=== PATIENT | male | born 1950 | race Caucasian/White ===

== ENCOUNTER 2017-09-15 14:47 | Inpatient (IN) | payer MEDICARE ==
[~2017-09-15] VITALS: Ht 188 cm; Wt 94.3 kg
[2017-09-15] MEDS ORDERED: MAG HYDROX/AL HYDROX/SIMETH 30 ML ORAL.SUSP PO PRN (15:45)
[2017-09-15] MEDS ORDERED: METHYL SALICYLATE/MENTHOL TOPICAL OINTMENT 29GM TUBE. TP PRN (15:45)
[2017-09-15] MEDS ORDERED: CALC1TAB75 PO (15:59)
[2017-09-15] MEDS ORDERED: CARB1TAB2 PO (15:59)
[2017-09-15] MEDS ORDERED: MULT1TAB52 PO (16:10)
[2017-09-15] MEDS ORDERED: GABA600T2 PO (16:10)
[2017-09-15] MEDS ORDERED: VENL75CA PO (16:10)
[2017-09-15] MEDS ORDERED: MEMA10TA PO (16:10)
[2017-09-15] MEDS ORDERED: APIX5TAB3 PO (16:10)
[2017-09-15] MEDS ORDERED: QUET25TA5 PO (16:10)
[2017-09-15] MEDS ORDERED: LISI-334 PO (16:10)
[2017-09-15] MEDS ORDERED: QUET50TA5 PO (16:10)
[2017-09-15] MEDS ORDERED: CLON0.5T PO (16:10)
[2017-09-15] MEDS ORDERED: PANT20TA58 PO (16:10)
[2017-09-15] MEDS ORDERED: OMEG-33 PO (16:10)
[2017-09-15 16:22] VITALS: BP 162/95
[2017-09-15 16:55] LABS: BASO % 0 % (0-3); EOS # 0.1 x10^3/uL (0.0-0.7); EOS % 1 % (0-3); HEMOGLOBIN 14.4 g/dL (13.0-17.5); LYMPH # 1.2 x10^3/uL (1.0-4.8); LYMPH % 20 % (24-48); MEAN CORPUSCULAR HEMOGLOBIN 32 pg (25-35); MEAN CORPUSCULAR HGB CONC 34 g/dL (31-37); MEAN CORPUSCULAR VOLUME 93 fL (79-100); MONO # 0.3 x10^3/uL (0.0-1.1); MONO % 5 % (0-9); NEUT # 4.5 x10^3uL (1.8-7.7); NEUT % 74 % (31-73); PLATELET COUNT 164 x10^3/uL (140-400); RED BLOOD COUNT 4.52 x10^6/uL (4.30-5.70); RED CELL DISTRIBUTION WIDTH 13.5 % (11.5-14.5); WHITE BLOOD COUNT 6.1 x10^3/uL (4.0-11.0)
[2017-09-15 17:11] LABS: ALBUMIN 3.6 g/dL (3.4-5.0); ALBUMIN/GLOBULIN RATIO 0.9 (1.0-1.7); CALCIUM 9.3 mg/dL (8.5-10.1); CREATININE 1.3 mg/dL (0.7-1.3); GFR 54.7; MAGNESIUM 2.3 mg/dL (1.8-2.4); TOTAL BILIRUBIN 0.9 mg/dL (0.2-1.0); TOTAL PROTEIN 7.6 g/dL (6.4-8.2)
[2017-09-15 17:23] VITALS: BP 145/95
[2017-09-15] MEDS: CARBIDOPA/LEVODOPA 25/100MG TABLET PO SCH ×2 (17:32→20:37)
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
[2017-09-15] MEDS: CALCIUM CARB/VIT D3 500/200 TABLET PO SCH (20:37)
[2017-09-15] MEDS: OMEGA-3 FATTY ACIDS/FISH OIL 1,000 MG CAPSULE. PO SCH (20:37)
[2017-09-15] MEDS: QUEtiapine 50 MG TABLET. PO SCH (20:37)
[2017-09-15] MEDS: APIXABAN 5 MG TABLET. PO SCH (20:37)
[2017-09-15] MEDS: GABAPENTIN 300 MG CAPSULE. PO SCH (20:37)
--- NOTE | 2017-09-15 21:34 | PDOC ---
Exam Note: Neto Note: Please also refer to the separate dictated note~for this date of service dictated separately.~Patient seen individually. Discussed the patient with Nursing staff reviewed the chart.~Reviewed interim history and current functioning. Reviewed vital signs,~Labs/ Radiology~and current medications noted below. Continue current treatment with the changes noted in the dictated addendum note Assessment: Vital Signs: Vital Signs Date Time Temp Pulse Resp B/P (MAP) Pulse Ox O2 Delivery O2 Flow Rate FiO2 09/15/17 17:23 88 145/95 (112) 09/15/17 16:22 98.5 20 99 Room Air Labs: Laboratory Tests Test 09/15/17 16:40 White Blood Count 6.1 x10^3/uL (4.0-11.0) Red Blood Count 4.52 x10^6/uL (4.30-5.70) Hemoglobin 14.4 g/dL (13.0-17.5) Hematocrit 42.0 % (39.0-53.0) Mean Corpuscular Volume 93 fL (79-100) Mean Corpuscular Hemoglobin 32 pg (25-35) Mean Corpuscular Hemoglobin Concent 34 g/dL (31-37) Red Cell Distribution Width 13.5 % (11.5-14.5) Platelet Count 164 x10^3/uL (140-400) Neutrophils (%) (Auto) 74 % (31-73) H Lymphocytes (%) (Auto) 20 % (24-48) L Monocytes (%) (Auto) 5 % (0-9) Eosinophils (%) (Auto) 1 % (0-3) Basophils (%) (Auto) 0 % (0-3) Neutrophils # (Auto) 4.5 x10^3uL (1.8-7.7) Lymphocytes # (Auto) 1.2 x10^3/uL (1.0-4.8) Monocytes # (Auto) 0.3 x10^3/uL (0.0-1.1) Eosinophils # (Auto) 0.1 x10^3/uL (0.0-0.7) Basophils # (Auto) 0.0 x10^3/uL (0.0-0.2) Sodium Level 144 mmol/L (136-145) Potassium Level 4.0 mmol/L (3.5-5.1) Chloride Level 106 mmol/L (98-107) Carbon Dioxide Level 30 mmol/L (21-32) Anion Gap 8 (6-14) Blood Urea Nitrogen 22 mg/dL (8-26) Creatinine 1.3 mg/dL (0.7-1.3) Estimated GFR (Cockcroft-Gault) 54.7 BUN/Creatinine Ratio 17 (6-20) Glucose Level 120 mg/dL (70-99) H Calcium Level 9.3 mg/dL (8.5-10.1) Magnesium Level 2.3 mg/dL (1.8-2.4) Total Bilirubin 0.9 mg/dL (0.2-1.0) Aspartate Amino Transferase (AST) 36 U/L (15-37) Alanine Aminotransferase (ALT) 45 U/L (16-63) Alkaline Phosphatase 63 U/L (46-116) Total Protein 7.6 g/dL (6.4-8.2) Albumin 3.6 g/dL (3.4-5.0) Albumin/Globulin Ratio 0.9 (1.0-1.7) L Current Medications: Meds: Current Medications Acetaminophen (Tylenol) 650 mg PRN Q6HRS PRN PO PAIN / TEMP; Start 09/15/17 at 15:45 Multi-Ingredient Ointment (Analgesic [place]) 1 abbey PRN QID PRN TP MUSCLE PAIN; Start 09/15/17 at 15:45 Al Hydroxide/Mg Hydroxide (Mylanta Plus Xs) 15 ml PRN AFTMEALHC PRN PO DYSPEPSIA; Start 09/15/17 at 15:45 Magnesium Hydroxide (Milk Of Magnesia) 2,400 mg PRN QHS PRN PO CONSTIPATION; Start 09/15/17 at 15:45 Apixaban (Eliquis) 5 mg BID PO Last administered on 09/15/17 20:37; Start 09/15/17 at 21:00 Carbidopa/Levodopa (Sinemet 25/100) 1 tab 5XDAY PO Last administered on t 20:37; Start 09/15/17 at 18:00 Lisinopril (Prinivil) 20 mg DAILY PO ; Start 09/16/17 at 09:00 Pantoprazole Sodium (Protonix) 40 mg DAILYAC PO ; Start 09/16/17 at 07:30 Calcium/Vitamin D (Oscal D 500mg/ 200uts) 1 tab TID PO Last administered on 20:37; Start 09/15/17 at 21:00 Gabapentin (Neurontin) 600 mg QHS PO Last administered on 09/15/17 20:37; Start 09/15/17 at 21:00 Multivitamins/ Calcium (Thera-M Plus) 1 tab DAILY PO ; Start 09/16/17 at 09:00 Fish Oil (Fish Oil) 1,000 mg TID PO Last administered on 09/15/17 20:37; Start 09/15/17 at 21:00 Clonazepam (KlonoPIN) 0.25 mg DAILY PO ; Start 09/16/17 at 09:00 Memantine (Namenda) 10 mg DAILY PO ; Start 09/16/17 at 09:00 Quetiapine Fumarate (SEROquel) 25 mg DAILY PO ; Start 09/16/17 at 09:00 Quetiapine Fumarate (SEROquel) 50 mg QHS PO Last administered on 09/15/17 20: 37; Start 09/15/17 at 21:00 Venlafaxine HCl (Effexor Xr) 75 mg DAILY PO ; Start 09/16/17 at 09:00 Active Scripts Active Reported Multivitamins (Multivitamin) 1 Each Tablet 1 Each PO DAILY Seroquel (Quetiapine Fumarate) 50 Mg Tablet 50 Mg PO QHS Seroquel (Quetiapine Fumarate) 25 Mg Tablet 25 Mg PO DAILY Protonix (Pantoprazole Sodium) 20 Mg Tablet.dr 20 Mg PO DAILY Namenda (Memantine Hcl) 10 Mg Tablet 10 Mg PO DAILY Lisinopril 20 Mg Tablet 20 Mg PO DAILY Klonopin (Clonazepam) 0.5 Mg Tablet 0.25 Mg PO DAILY Gabapentin 600 Mg Tablet 600 Mg PO QHS [place] 3 1,000 Mg Softgel ([place]-3 Fatty Acids/Fish Oil) 1 Each Capsule 1 Each PO TID Eliquis (Apixaban) 5 Mg Tablet 5 Mg PO BID Effexor Xr (Venlafaxine Hcl) 75 Mg Cap.er.24h 75 Mg PO DAILY Sinemet 25-100 Mg Tablet (Carbidopa/Levodopa) 1 Each Tablet 1 Tab PO 5XDAY Calcium 600 + Vit D 200 Tablet (Calcium Carbonate/Vitamin D3) 1 Each Tablet 1 Each PO TID I have reviewed the current psychotropics carefully including drug interactions. Risk benefit ratio favors no change other than as noted in my dictated progress note. Diagnosis: Problems: (1) Anxiety disorder (2) Dementia due to Parkinson's disease with behavioral disturbance (3) Lewy body dementia with behavioral disturbance (4) Impulse control disorder (5) Major depressive disorder, recurrent episode BRITTANY CONTRERAS MD Sep 15, 2017 21:34
--- NOTE | 2017-09-15 22:18 | EKG ---
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
[2017-09-16] MEDS: CARBIDOPA/LEVODOPA 25/100MG TABLET PO SCH ×5 (05:06→21:09)
[2017-09-16] MEDS: ACETAMINOPHEN 325 MG TABLET PO PRN (05:06)
[2017-09-16 06:08] VITALS: BP 96/63
[2017-09-16] MEDS: LISINOPRIL 20 MG TABLET PO SCH (09:00)
[2017-09-16] MEDS: MEMANTINE 10 MG TABLET. PO SCH (09:55)
[2017-09-16] MEDS: CALCIUM CARB/VIT D3 500/200 TABLET PO SCH ×3 (09:55→21:09)
[2017-09-16] MEDS: clonazePAM 0.5 MG TABLET PO SCH (09:55)
[2017-09-16] MEDS: OMEGA-3 FATTY ACIDS/FISH OIL 1,000 MG CAPSULE. PO SCH ×3 (09:55→21:10)
[2017-09-16] MEDS: PANTOPRAZOLE 40 MG TABLET. PO SCH (09:55)
[2017-09-16] MEDS: APIXABAN 5 MG TABLET. PO SCH ×2 (09:55→21:09)
[2017-09-16] MEDS: VENLAFAXINE XR 37.5 MG CAP.ER.24H. PO SCH (09:55)
[2017-09-16] MEDS: QUEtiapine 25 MG TABLET. PO SCH (09:56)
[2017-09-16] MEDS: MULTIVITAMIN with MINERAL TABLET. PO SCH (09:56)
[2017-09-16 10:51] LABS: THYROID STIM HORMONE (TSH) 0.592 uIU/mL (0.358-3.740)
[2017-09-16 12:08] LABS: HEMOGLOBIN A1C 5.3 % (4.8-5.6); T3 TOTAL 84 ng/dL (71-180); THYROXINE 7.7 ug/dL (4.5-12.0)
[2017-09-16 16:17] VITALS: BP 101/61
--- NOTE | 2017-09-16 16:27 | RAD ---
AP chest. History: Temperature AP view was taken of the chest. The patient is rotated to the left. There are no definite infiltrates. There is no effusion. Left lung base is not optimally evaluated. There is a stimulator on the left. Impression: 1. No definite infiltrates.
[2017-09-16 16:38] LABS: BACTERIA,URINE 0 /HPF (0-FEW); BILIRUBIN,URINE SMALL (NEG); CLARITY,URINE CLEAR; COLOR,URINE AMBER; GLUCOSE,URINE NEG (NEG); NITRITE,URINE NEG (NEG); RBC,URINE 0 /HPF (0-2); SQUAMOUS EPITHELIAL CELL,UR OCC /LPF; UROBILINOGEN,URINE 0.2 mg/dL (0.2 mg/dL); WBC,URINE OCC /HPF (0-4)
[2017-09-16 17:30] LABS: BASO % 0 % (0-3); EOS % 1 % (0-3); HEMATOCRIT 39.8 % (39.0-53.0); HEMOGLOBIN 13.6 g/dL (13.0-17.5); LYMPH # 0.4 x10^3/uL (1.0-4.8); LYMPH % 7 % (24-48); MEAN CORPUSCULAR HEMOGLOBIN 32 pg (25-35); MEAN CORPUSCULAR HGB CONC 34 g/dL (31-37); MEAN CORPUSCULAR VOLUME 93 fL (79-100); MONO # 0.2 x10^3/uL (0.0-1.1); MONO % 3 % (0-9); NEUT # 5.8 x10^3uL (1.8-7.7); NEUT % 90 % (31-73); PLATELET COUNT 152 x10^3/uL (140-400); RED BLOOD COUNT 4.29 x10^6/uL (4.30-5.70); RED CELL DISTRIBUTION WIDTH 13.9 % (11.5-14.5); WHITE BLOOD COUNT 6.5 x10^3/uL (4.0-11.0)
[2017-09-16 17:37] LABS: ALBUMIN 3.1 g/dL (3.4-5.0); ALBUMIN/GLOBULIN RATIO 0.9 (1.0-1.7); CALCIUM 9.1 mg/dL (8.5-10.1); CREATININE 1.1 mg/dL (0.7-1.3); GFR 66.4; POTASSIUM 4.3 mmol/L (3.5-5.1); TOTAL BILIRUBIN 1.5 mg/dL (0.2-1.0); TOTAL PROTEIN 6.5 g/dL (6.4-8.2)
--- NOTE | 2017-09-16 20:03 | PDOC ---
Exam Note: Neto Note: Please also refer to the separate dictated note~for this date of service dictated separately.~Patient seen individually. Discussed the patient with Nursing staff reviewed the chart.~Reviewed interim history and current functioning. Reviewed vital signs,~Labs/ Radiology~and current medications noted below. Continue current treatment with the changes noted in the dictated addendum note Assessment: Vital Signs: Vital Signs Date Time Temp Pulse Resp B/P (MAP) Pulse Ox O2 Delivery O2 Flow Rate FiO2 09/16/17 16:17 100.6 107 20 101/61 (74) 97 09/15/17 16:22 Room Air I&O Intake and Output 09/16/17 07:00 Intake Total 360 ml Balance 360 ml Intake Oral 360 ml # Bowel Movements 1 Labs: Laboratory Tests Test 09/16/17 16:10 09/16/17 17:10 Urine Collection Type Unknown Urine Color [place] Urine Clarity Clear Urine pH 5.5 Urine Specific [place] 1.020 Urine Protein 30 mg/dl (NEG-TRACE) Urine Glucose (UA) Neg mg/dL (NEG) Urine Ketones (Stick) 15 mg/dL (NEG) Urine Blood Neg (NEG) Urine Nitrite Neg (NEG) Urine Bilirubin Small (NEG) Urine Urobilinogen Dipstick 0.2 mg/dL (0.2 mg/dL) Urine Leukocyte Esterase Neg (NEG) Urine RBC 0 /HPF (0-2) Urine WBC Occ /HPF (0-4) Urine Squamous Epithelial Cells Occ /LPF Urine Bacteria 0 /HPF (0-FEW) Urine Mucus Mod /LPF White Blood Count 6.5 x10^3/uL (4.0-11.0) Red Blood Count 4.29 x10^6/uL (4.30-5.70) L Hemoglobin 13.6 g/dL (13.0-17.5) Hematocrit 39.8 % (39.0-53.0) Mean Corpuscular Volume 93 fL (79-100) Mean Corpuscular Hemoglobin 32 pg (25-35) Mean Corpuscular Hemoglobin Concent 34 g/dL (31-37) Red Cell Distribution Width 13.9 % (11.5-14.5) Platelet Count 152 x10^3/uL (140-400) Neutrophils (%) (Auto) 90 % (31-73) H Lymphocytes (%) (Auto) 7 % (24-48) L Monocytes (%) (Auto) 3 % (0-9) Eosinophils (%) (Auto) 1 % (0-3) Basophils (%) (Auto) 0 % (0-3) Neutrophils # (Auto) 5.8 x10^3uL (1.8-7.7) Lymphocytes # (Auto) 0.4 x10^3/uL (1.0-4.8) L Monocytes # (Auto) 0.2 x10^3/uL (0.0-1.1) Eosinophils # (Auto) 0.0 x10^3/uL (0.0-0.7) Basophils # (Auto) 0.0 x10^3/uL (0.0-0.2) Sodium Level 141 mmol/L (136-145) Potassium Level 4.3 mmol/L (3.5-5.1) Chloride Level 104 mmol/L (98-107) Carbon Dioxide Level 28 mmol/L (21-32) Anion Gap 9 (6-14) Blood Urea Nitrogen 24 mg/dL (8-26) Creatinine 1.1 mg/dL (0.7-1.3) Estimated GFR (Cockcroft-Gault) 66.4 BUN/Creatinine Ratio 22 (6-20) H Glucose Level 110 mg/dL (70-99) H Lactic Acid Level 1.3 mmol/L (0.4-2.0) Calcium Level 9.1 mg/dL (8.5-10.1) Total Bilirubin 1.5 mg/dL (0.2-1.0) H Aspartate Amino Transferase (AST) 39 U/L (15-37) H Alanine Aminotransferase (ALT) 16 U/L (16-63) Alkaline Phosphatase 50 U/L (46-116) Total Protein 6.5 g/dL (6.4-8.2) Albumin 3.1 g/dL (3.4-5.0) L Albumin/Globulin Ratio 0.9 (1.0-1.7) L Current Medications: Meds: Current Medications Acetaminophen (Tylenol) 650 mg PRN Q6HRS PRN PO PAIN / TEMP Last administered on 09/16/17t 05:06; Start 09/15/17 at 15:45 Multi-Ingredient Ointment (Analgesic [place]) 1 abbey PRN QID PRN TP MUSCLE PAIN; Start 09/15/17 at 15:45 Al Hydroxide/Mg Hydroxide (Mylanta Plus Xs) 15 ml PRN AFTMEALHC PRN PO DYSPEPSIA; Start 09/15/17 at 15:45 Magnesium Hydroxide (Milk Of Magnesia) 2,400 mg PRN QHS PRN PO CONSTIPATION; Start 09/15/17 at 15:45 Apixaban (Eliquis) 5 mg BID PO Last administered on 09/16/17 09:55; Start at 21:00 Carbidopa/Levodopa (Sinemet 25/100) 1 tab 5XDAY PO Last administered on 17:13; Start 09/15/17 at 18:00 Lisinopril (Prinivil) 20 mg DAILY PO ; Start 09/16/17 at 09:00 Pantoprazole Sodium (Protonix) 40 mg DAILYAC PO Last administered on 09:55; Start 09/16/17 at 07:30 Calcium/Vitamin D (Oscal D 500mg/ 200uts) 1 tab TID PO Last administered on 14:23; Start 09/15/17 at 21:00 Gabapentin (Neurontin) 600 mg QHS PO Last administered on 09/15/17 20:37; Start 09/15/17 at 21:00 Multivitamins/ Calcium (Thera-M Plus) 1 tab DAILY PO Last administered on 09/16 09:56; Start 09/16/17 at 09:00 Fish Oil (Fish Oil) 1,000 mg TID PO Last administered on 09/16/17 14:23; Start 09/15/17 at 21:00 Clonazepam (KlonoPIN) 0.25 mg DAILY PO Last administered on 09/16/17 09:55; Start 09/16/17 at 09:00 Memantine (Namenda) 10 mg DAILY PO Last administered on 09/16/17 09:55; Start 09/16/17 at 09:00 Quetiapine Fumarate (SEROquel) 25 mg DAILY PO Last administered on 09/16/17 09:56; Start 09/16/17 at 09:00 Quetiapine Fumarate (SEROquel) 50 mg QHS PO Last administered on 09/15/17 20: 37; Start 09/15/17 at 21:00 Venlafaxine HCl (Effexor Xr) 75 mg DAILY PO Last administered on 09/16/17 09: 55; Start 09/16/17 at 09:00 Active Scripts Active Reported Multivitamins (Multivitamin) 1 Each Tablet 1 Each PO DAILY Seroquel (Quetiapine Fumarate) 50 Mg Tablet 50 Mg PO QHS Seroquel (Quetiapine Fumarate) 25 Mg Tablet 25 Mg PO DAILY Protonix (Pantoprazole Sodium) 20 Mg Tablet.dr 20 Mg PO DAILY Namenda (Memantine Hcl) 10 Mg Tablet 10 Mg PO DAILY Lisinopril 20 Mg Tablet 20 Mg PO DAILY Klonopin (Clonazepam) 0.5 Mg Tablet 0.25 Mg PO DAILY Gabapentin 600 Mg Tablet 600 Mg PO QHS [place] 3 1,000 Mg Softgel ([place]-3 Fatty Acids/Fish Oil) 1 Each Capsule 1 Each PO TID Eliquis (Apixaban) 5 Mg Tablet 5 Mg PO BID Effexor Xr (Venlafaxine Hcl) 75 Mg Cap.er.24h 75 Mg PO DAILY Sinemet 25-100 Mg Tablet (Carbidopa/Levodopa) 1 Each Tablet 1 Tab PO 5XDAY Calcium 600 + Vit D 200 Tablet (Calcium Carbonate/Vitamin D3) 1 Each Tablet 1 Each PO TID I have reviewed the current psychotropics carefully including drug interactions. Risk benefit ratio favors no change other than as noted in my dictated progress note. Diagnosis: Problems: (1) Anxiety disorder (2) Dementia due to Parkinson's disease with behavioral disturbance (3) Lewy body dementia with behavioral disturbance (4) Impulse control disorder (5) Major depressive disorder, recurrent episode BRITTANY CONTRERAS MD Sep 16, 2017 20:03
[2017-09-16] MEDS: GABAPENTIN 300 MG CAPSULE. PO SCH (21:09)
[2017-09-16] MEDS: QUEtiapine 50 MG TABLET. PO SCH (21:09)
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
[2017-09-17] MEDS: CARBIDOPA/LEVODOPA 25/100MG TABLET PO SCH ×5 (05:13→20:20)
[2017-09-17 05:54] VITALS: BP 161/92
[2017-09-17] MEDS: MAGNESIUM HYDROXIDE 2,400 MG/30 ML ORAL.SUSP. PO PRN (06:24)
[2017-09-17 06:48] VITALS: BP 127/78
--- NOTE | 2017-09-17 08:10 | RAD ---
CT of the head without contrast, 09/17/2017: History: Fall, head injury There are linear opacities extending into both basal ganglia regions, likely stimulator leads. Correlation with the patient's surgical history is suggested. The ventricles are within normal limits in size. There is no shift of the midline structures. There is no evidence of acute intracranial hemorrhage or mass effect. IMPRESSION: 1. Postsurgical findings as described above. 2. No acute intracranial abnormality is detected. PQRS Compliance Statement: One or more of the following individualized dose reduction techniques were utilized for this examination: 1. Automated exposure control 2. Adjustment of the mA and/or kV according to patient size 3. Use of iterative reconstruction technique
[2017-09-17] MEDS: PANTOPRAZOLE 40 MG TABLET. PO SCH (08:56)
[2017-09-17] MEDS: VENLAFAXINE XR 37.5 MG CAP.ER.24H. PO SCH (08:56)
[2017-09-17] MEDS: APIXABAN 5 MG TABLET. PO SCH ×2 (08:57→20:20)
[2017-09-17] MEDS: OMEGA-3 FATTY ACIDS/FISH OIL 1,000 MG CAPSULE. PO SCH ×3 (08:57→20:20)
[2017-09-17] MEDS: CALCIUM CARB/VIT D3 500/200 TABLET PO SCH ×3 (08:58→20:20)
[2017-09-17] MEDS: MEMANTINE 10 MG TABLET. PO SCH (08:58)
[2017-09-17] MEDS: clonazePAM 0.5 MG TABLET PO SCH (08:58)
[2017-09-17] MEDS: QUEtiapine 25 MG TABLET. PO SCH (08:59)
[2017-09-17] MEDS: LISINOPRIL 20 MG TABLET PO SCH (08:59)
[2017-09-17] MEDS: MULTIVITAMIN with MINERAL TABLET. PO SCH (08:59)
[2017-09-17] MEDS: ACETAMINOPHEN 325 MG TABLET PO PRN (08:59)
--- NOTE | 2017-09-17 09:48 | RAD ---
Indication: Pain after falling backwards this morning, striking elbow and head on floor. Technique: 2 views of the left elbow are submitted for review. No comparison is available. Findings: There is no fracture or dislocation. Mild degenerative spurring is noted. There is displacement of fat pads, likely a small effusion. There is no soft tissue swelling. Impression: Negative for fracture. Suspected small effusion.
[2017-09-17 15:57] VITALS: BP 114/77
[2017-09-17] MEDS: QUEtiapine 50 MG TABLET. PO SCH (20:20)
[2017-09-17] MEDS: GABAPENTIN 300 MG CAPSULE. PO SCH (20:20)
[2017-09-17] MEDS: DIVALPROEX 125 MG CAP.SPRINK PO SCH (20:22)
--- NOTE | 2017-09-17 21:26 | PDOC ---
Exam Note: Neto Note: Please also refer to the separate dictated note~for this date of service dictated separately.~Patient seen individually. Discussed the patient with Nursing staff reviewed the chart.~Reviewed interim history and current functioning. Reviewed vital signs,~Labs/ Radiology~and current medications noted below. Continue current treatment with the changes noted in the dictated addendum note Assessment: Vital Signs: Vital Signs Date Time Temp Pulse Resp B/P (MAP) Pulse Ox O2 Delivery O2 Flow Rate FiO2 09/17/17 15:57 97.4 84 16 114/77 (89) 97 09/17/17 06:48 Room Air I&O Intake and Output 09/17/17 06:59 Intake Total 720 ml Balance 720 ml Intake Oral 720 ml # Bowel Movements 2 Current Medications: Meds: Current Medications Acetaminophen (Tylenol) 650 mg PRN Q6HRS PRN PO PAIN / TEMP Last administered on 09/17/17 08:59; Start 09/15/17 at 15:45 Multi-Ingredient Ointment (Analgesic [place]) 1 abbey PRN QID PRN TP MUSCLE PAIN; Start 09/15/17 at 15:45 Al Hydroxide/Mg Hydroxide (Mylanta Plus Xs) 15 ml PRN AFTMEALHC PRN PO DYSPEPSIA; Start 09/15/17 at 15:45 Magnesium Hydroxide (Milk Of Magnesia) 2,400 mg PRN QHS PRN PO CONSTIPATION Last administered on 09/17/17 06:24; Start 09/15/17 at 15:45 Apixaban (Eliquis) 5 mg BID PO Last administered on 09/17/17 20:20; Start at 21:00 Carbidopa/Levodopa (Sinemet 25/100) 1 tab 5XDAY PO Last administered on 20:20; Start 09/15/17 at 18:00 Lisinopril (Prinivil) 20 mg DAILY PO Last administered on 09/17/17 08:59; Start 09/16/17 at 09:00 Pantoprazole Sodium (Protonix) 40 mg DAILYAC PO Last administered on 08:56; Start 09/16/17 at 07:30 Calcium/Vitamin D (Oscal D 500mg/ 200uts) 1 tab TID PO Last administered on 20:20; Start 09/15/17 at 21:00 Gabapentin (Neurontin) 600 mg QHS PO Last administered on 09/17/17 20:20; Start 09/15/17 at 21:00 Multivitamins/ Calcium (Thera-M Plus) 1 tab DAILY PO Last administered on 09/17 08:59; Start 09/16/17 at 09:00 Fish Oil (Fish Oil) 1,000 mg TID PO Last administered on 09/17/17 20:20; Start 09/15/17 at 21:00 Clonazepam (KlonoPIN) 0.25 mg DAILY PO Last administered on 09/17/17 08:58; Start 09/16/17 at 09:00 Memantine (Namenda) 10 mg DAILY PO Last administered on 09/17/17 08:58; Start 09/16/17 at 09:00 Quetiapine Fumarate (SEROquel) 25 mg DAILY PO Last administered on 09/17/17 08:59; Start 09/16/17 at 09:00 Quetiapine Fumarate (SEROquel) 50 mg QHS PO Last administered on 09/17/17 20: 20; Start 09/15/17 at 21:00 Venlafaxine HCl (Effexor Xr) 75 mg DAILY PO Last administered on 09/17/17 08: 56; Start 09/16/17 at 09:00 Divalproex Sodium (Depakote Sprinkles) 125 mg [id number] PO Last administered on 20:22; Start 09/17/17 at 21:00 Active Scripts Active Reported Multivitamins (Multivitamin) 1 Each Tablet 1 Each PO DAILY Seroquel (Quetiapine Fumarate) 50 Mg Tablet 50 Mg PO QHS Seroquel (Quetiapine Fumarate) 25 Mg Tablet 25 Mg PO DAILY Protonix (Pantoprazole Sodium) 20 Mg Tablet.dr 20 Mg PO DAILY Namenda (Memantine Hcl) 10 Mg Tablet 10 Mg PO DAILY Lisinopril 20 Mg Tablet 20 Mg PO DAILY Klonopin (Clonazepam) 0.5 Mg Tablet 0.25 Mg PO DAILY Gabapentin 600 Mg Tablet 600 Mg PO QHS [place] 3 1,000 Mg Softgel ([place]-3 Fatty Acids/Fish Oil) 1 Each Capsule 1 Each PO TID Eliquis (Apixaban) 5 Mg Tablet 5 Mg PO BID Effexor Xr (Venlafaxine Hcl) 75 Mg Cap.er.24h 75 Mg PO DAILY Sinemet 25-100 Mg Tablet (Carbidopa/Levodopa) 1 Each Tablet 1 Tab PO 5XDAY Calcium 600 + Vit D 200 Tablet (Calcium Carbonate/Vitamin D3) 1 Each Tablet 1 Each PO TID I have reviewed the current psychotropics carefully including drug interactions. Risk benefit ratio favors no change other than as noted in my dictated progress note. 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
--- NOTE | 2017-09-17 23:52 | PN ---
DATE: 09/16/2017 This late entry for 09/16/2017 covers elements not covered in my initial note of 09/16/2017. SUBJECTIVE: I met with the patient in the evening of 09/16/2017. The patient did well the previous evening and reasonably during the day on 09/16/2017. He is able to admit that he is here for his temper problems. REVIEW OF SYSTEMS: Ambulation impaired, in wheelchair. No CV, , pulmonary, eye, ENT system symptoms on review. Reliability poor. MENTAL STATUS EXAM: Oriented to himself. Insight, judgment, recent and remote memory, attention, concentration, fund of knowledge poor, consistent with his diagnosis mentioned in my initial note. PLAN: Continue psychotropics mentioned in my initial note. Effexor, Klonopin, Namenda, Seroquel. Adjust further as clinically indicated. MAN Felicita CONTRERAS MD DR: ROCIO/afia JOB#: [id number] / [id number]
[2017-09-18 06:04] VITALS: BP 109/71
[2017-09-18] MEDS: CARBIDOPA/LEVODOPA 25/100MG TABLET PO SCH ×6 (07:18→20:25)
[2017-09-18] MEDS: OMEGA-3 FATTY ACIDS/FISH OIL 1,000 MG CAPSULE. PO SCH ×3 (07:58→20:25)
[2017-09-18] MEDS: APIXABAN 5 MG TABLET. PO SCH ×2 (07:58→20:25)
[2017-09-18] MEDS: MULTIVITAMIN with MINERAL TABLET. PO SCH (07:58)
[2017-09-18] MEDS: PANTOPRAZOLE 40 MG TABLET. PO SCH (07:59)
[2017-09-18] MEDS: QUEtiapine 25 MG TABLET. PO SCH (07:59)
[2017-09-18] MEDS: clonazePAM 0.5 MG TABLET PO SCH (07:59)
[2017-09-18] MEDS: CALCIUM CARB/VIT D3 500/200 TABLET PO SCH ×3 (07:59→20:25)
[2017-09-18] MEDS: MEMANTINE 10 MG TABLET. PO SCH (07:59)
[2017-09-18] MEDS: DIVALPROEX 125 MG CAP.SPRINK PO SCH ×3 (08:00→20:25)
[2017-09-18] MEDS: LISINOPRIL 20 MG TABLET PO SCH (08:00)
[2017-09-18] MEDS: ACETAMINOPHEN 325 MG TABLET PO PRN (08:00)
[2017-09-18] MEDS: VENLAFAXINE XR 37.5 MG CAP.ER.24H. PO SCH (08:00)
[2017-09-18] MEDS ORDERED: ACETAMINOPHEN 325 MG TABLET PO ONE (15:15)
[2017-09-18 16:08] VITALS: BP 123/91
[2017-09-18] MEDS: GABAPENTIN 300 MG CAPSULE. PO SCH (20:25)
[2017-09-18] MEDS: QUEtiapine 50 MG TABLET. PO SCH (20:26)
[2017-09-18] MEDS: LIDOCAINE (700MG/PATCH) PATCH. TD SCH ×2 (20:28→20:40)
[2017-09-18] MEDS: ACETAMINOPHEN 650 MG/20.3 ML SOLUTION. PO SCH (22:00)
--- NOTE | 2017-09-18 22:08 | PDOC ---
Exam Note: Neto Note: Please also refer to the separate dictated note~for this date of service dictated separately.~Patient seen individually. Discussed the patient with Nursing staff reviewed the chart.~Reviewed interim history and current functioning. Reviewed vital signs,~Labs/ Radiology~and current medications noted below. Continue current treatment with the changes noted in the dictated addendum note Assessment: Vital Signs: Vital Signs Date Time Temp Pulse Resp B/P (MAP) Pulse Ox O2 Delivery O2 Flow Rate FiO2 09/18/17 16:08 98.1 78 16 123/91 (102) 98 09/17/17 06:48 Room Air I&O Intake and Output 09/18/17 07:00 Intake Total 1260 ml Balance 1260 ml Intake Oral 1260 ml # Bowel Movements 1 Current Medications: Meds: Current Medications Acetaminophen (Tylenol) 650 mg PRN Q6HRS PRN PO PAIN / TEMP Last administered on 09/18/17 08:00; Start 09/15/17 at 15:45; Stop 09/18/17 at 15:20; Status DC Multi-Ingredient Ointment (Analgesic [place]) 1 abbey PRN QID PRN TP MUSCLE PAIN; Start 09/15/17 at 15:45 Al Hydroxide/Mg Hydroxide (Mylanta Plus Xs) 15 ml PRN AFTMEALHC PRN PO DYSPEPSIA; Start 09/15/17 at 15:45 Magnesium Hydroxide (Milk Of Magnesia) 2,400 mg PRN QHS PRN PO CONSTIPATION Last administered on 09/17/17 06:24; Start 09/15/17 at 15:45 Apixaban (Eliquis) 5 mg BID PO Last administered on 09/18/17 20:25; Start at 21:00 Carbidopa/Levodopa (Sinemet 25/100) 1 tab 5XDAY PO Last administered on 20:25; Start 09/15/17 at 18:00 Lisinopril (Prinivil) 20 mg DAILY PO Last administered on 09/18/17 08:00; Start 09/16/17 at 09:00 Pantoprazole Sodium (Protonix) 40 mg DAILYAC PO Last administered on 07:59; Start 09/16/17 at 07:30 Calcium/Vitamin D (Oscal D 500mg/ 200uts) 1 tab TID PO Last administered on 20:25; Start 09/15/17 at 21:00 Gabapentin (Neurontin) 600 mg QHS PO Last administered on 09/18/17 20:25; Start 09/15/17 at 21:00 Multivitamins/ Calcium (Thera-M Plus) 1 tab DAILY PO Last administered on 09/18 07:58; Start 09/16/17 at 09:00 Fish Oil (Fish Oil) 1,000 mg TID PO Last administered on 09/18/17 20:25; Start 09/15/17 at 21:00 Clonazepam (KlonoPIN) 0.25 mg DAILY PO Last administered on 09/18/17 07:59; Start 09/16/17 at 09:00 Memantine (Namenda) 10 mg DAILY PO Last administered on 09/18/17 07:59; Start 09/16/17 at 09:00 Quetiapine Fumarate (SEROquel) 25 mg DAILY PO Last administered on 09/18/17 07:59; Start 09/16/17 at 09:00 Quetiapine Fumarate (SEROquel) 50 mg QHS PO Last administered on 09/18/17 20: 26; Start 09/15/17 at 21:00 Venlafaxine HCl (Effexor Xr) 75 mg DAILY PO Last administered on 09/18/17 08: 00; Start 09/16/17 at 09:00 Divalproex Sodium (Depakote Sprinkles) 125 mg [id number] PO Last administered on 20:25; Start 09/17/17 at 21:00 Acetaminophen (Tylenol) 650 mg Q8HRS PO ; Start 09/18/17 at 22:00; Stop at 21:59 Acetaminophen (Tylenol) 650 mg 1X ONCE PO Last administered on 09/18/17 15: 25; Start 09/18/17 at 15:15; Stop 09/18/17 at 15:20; Status DC Lidocaine (Lidoderm) 1 patch HS TD ; Start 09/18/17 at 21:00 Multi-Ingredient Ointment (Analgesic [place]) 1 abbey BID92 TP ; Start 09/19/17 at 09:00; Stop 12/18/17 at 08:59 Active Scripts Active Reported Multivitamins (Multivitamin) 1 Each Tablet 1 Each PO DAILY Seroquel (Quetiapine Fumarate) 50 Mg Tablet 50 Mg PO QHS Seroquel (Quetiapine Fumarate) 25 Mg Tablet 25 Mg PO DAILY Protonix (Pantoprazole Sodium) 20 Mg Tablet.dr 20 Mg PO DAILY Namenda (Memantine Hcl) 10 Mg Tablet 10 Mg PO DAILY Lisinopril 20 Mg Tablet 20 Mg PO DAILY Klonopin (Clonazepam) 0.5 Mg Tablet 0.25 Mg PO DAILY Gabapentin 600 Mg Tablet 600 Mg PO QHS [place] 3 1,000 Mg Softgel ([place]-3 Fatty Acids/Fish Oil) 1 Each Capsule 1 Each PO TID Eliquis (Apixaban) 5 Mg Tablet 5 Mg PO BID Effexor Xr (Venlafaxine Hcl) 75 Mg Cap.er.24h 75 Mg PO DAILY Sinemet 25-100 Mg Tablet (Carbidopa/Levodopa) 1 Each Tablet 1 Tab PO 5XDAY Calcium 600 + Vit D 200 Tablet (Calcium Carbonate/Vitamin D3) 1 Each Tablet 1 Each PO TID I have reviewed the current psychotropics carefully including drug interactions. Risk benefit ratio favors no change other than as noted in my dictated progress note. 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
[2017-09-19] MEDS: CARBIDOPA/LEVODOPA 25/100MG TABLET PO SCH ×5 (05:52→19:43)
[2017-09-19] MEDS: ACETAMINOPHEN 650 MG/20.3 ML SOLUTION. PO SCH ×5 (05:52→19:54)
[2017-09-19 06:22] VITALS: BP 126/86
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
[2017-09-19] MEDS: VENLAFAXINE XR 37.5 MG CAP.ER.24H. PO SCH (09:37)
[2017-09-19] MEDS: QUEtiapine 25 MG TABLET. PO SCH (09:37)
[2017-09-19] MEDS: CALCIUM CARB/VIT D3 500/200 TABLET PO SCH ×3 (09:37→19:42)
[2017-09-19] MEDS: OMEGA-3 FATTY ACIDS/FISH OIL 1,000 MG CAPSULE. PO SCH ×3 (09:37→19:42)
[2017-09-19] MEDS: LISINOPRIL 20 MG TABLET PO SCH (09:38)
[2017-09-19] MEDS: MULTIVITAMIN with MINERAL TABLET. PO SCH (09:38)
[2017-09-19] MEDS: APIXABAN 5 MG TABLET. PO SCH ×2 (09:38→19:42)
[2017-09-19] MEDS: DIVALPROEX 125 MG CAP.SPRINK PO SCH ×3 (09:38→19:42)
[2017-09-19] MEDS: MEMANTINE 10 MG TABLET. PO SCH ×2 (09:38→19:43)
[2017-09-19] MEDS: PANTOPRAZOLE 40 MG TABLET. PO SCH (09:38)
[2017-09-19] MEDS: clonazePAM 0.5 MG TABLET PO SCH (09:40)
[2017-09-19] MEDS: METHYL SALICYLATE/MENTHOL TOPICAL OINTMENT 29GM TUBE. TP SCH ×2 (09:40→13:59)
[2017-09-19 16:29] VITALS: BP 120/79
[2017-09-19] MEDS: QUEtiapine 50 MG TABLET. PO SCH (19:42)
[2017-09-19] MEDS: GABAPENTIN 300 MG CAPSULE. PO SCH (19:42)
[2017-09-19] MEDS: LIDOCAINE (700MG/PATCH) PATCH. TD SCH (19:54)
--- NOTE | 2017-09-19 20:10 | PDOC ---
Exam Note: Neto Note: Please also refer to the separate dictated note~for this date of service dictated separately.~Patient seen individually. Discussed the patient with Nursing staff reviewed the chart.~Reviewed interim history and current functioning. Reviewed vital signs,~Labs/ Radiology~and current medications noted below. Continue current treatment with the changes noted in the dictated addendum note Assessment: Vital Signs: Vital Signs Date Time Temp Pulse Resp B/P (MAP) Pulse Ox O2 Delivery O2 Flow Rate FiO2 09/19/17 16:29 98.6 82 18 120/79 (93) 97 09/17/17 06:48 Room Air I&O Intake and Output 09/19/17 07:00 Intake Total 1080 ml Balance 1080 ml Intake Oral 1080 ml Current Medications: Meds: Current Medications Acetaminophen (Tylenol) 650 mg PRN Q6HRS PRN PO PAIN / TEMP Last administered on 09/18/17 08:00; Start 09/15/17 at 15:45; Stop 09/18/17 at 15:20; Status DC Multi-Ingredient Ointment (Analgesic [place]) 1 abbey PRN QID PRN TP MUSCLE PAIN; Start 09/15/17 at 15:45 Al Hydroxide/Mg Hydroxide (Mylanta Plus Xs) 15 ml PRN AFTMEALHC PRN PO DYSPEPSIA; Start 09/15/17 at 15:45 Magnesium Hydroxide (Milk Of Magnesia) 2,400 mg PRN QHS PRN PO CONSTIPATION Last administered on 09/17/17 06:24; Start 09/15/17 at 15:45 Apixaban (Eliquis) 5 mg BID PO Last administered on 09/19/17 19:42; Start at 21:00 Carbidopa/Levodopa (Sinemet 25/100) 1 tab 5XDAY PO Last administered on 19:43; Start 09/15/17 at 18:00 Lisinopril (Prinivil) 20 mg DAILY PO Last administered on 09/19/17 09:38; Start 09/16/17 at 09:00 Pantoprazole Sodium (Protonix) 40 mg DAILYAC PO Last administered on 09:38; Start 09/16/17 at 07:30 Calcium/Vitamin D (Oscal D 500mg/ 200uts) 1 tab TID PO Last administered on 19:42; Start 09/15/17 at 21:00 Gabapentin (Neurontin) 600 mg QHS PO Last administered on 09/19/17 19:42; Start 09/15/17 at 21:00 Multivitamins/ Calcium (Thera-M Plus) 1 tab DAILY PO Last administered on 09/19 09:38; Start 09/16/17 at 09:00 Fish Oil (Fish Oil) 1,000 mg TID PO Last administered on 09/19/17 19:42; Start 09/15/17 at 21:00 Clonazepam (KlonoPIN) 0.25 mg DAILY PO Last administered on 09/19/17 09:40; Start 09/16/17 at 09:00 Memantine (Namenda) 10 mg DAILY PO Last administered on 09/19/17 09:38; Start 09/16/17 at 09:00; Stop 09/19/17 at 14:55; Status DC Quetiapine Fumarate (SEROquel) 25 mg DAILY PO Last administered on 09/19/17 09:37; Start 09/16/17 at 09:00 Quetiapine Fumarate (SEROquel) 50 mg QHS PO Last administered on 09/19/17 19: 42; Start 09/15/17 at 21:00 Venlafaxine HCl (Effexor Xr) 75 mg DAILY PO Last administered on 09/19/17 09: 37; Start 09/16/17 at 09:00; Stop 09/19/17 at 18:56; Status DC Divalproex Sodium (Depakote Sprinkles) 125 mg [id number] PO Last administered on 19:42; Start 09/17/17 at 21:00 Acetaminophen (Tylenol) 650 mg Q8HRS PO Last administered on 09/19/17 13:59; Start 09/18/17 at 22:00; Stop 09/25/17 at 21:59 Acetaminophen (Tylenol) 650 mg 1X ONCE PO Last administered on 09/18/17 15: 25; Start 09/18/17 at 15:15; Stop 09/18/17 at 15:20; Status DC Lidocaine (Lidoderm) 1 patch HS TD ; Start 09/18/17 at 21:00 Multi-Ingredient Ointment (Analgesic [place]) 1 abbey BID92 TP Last administered on 09/19/17 09:40; Start 09/19/17 at 09:00; Stop 09/24/17 at 08:59 Memantine (Namenda) 10 mg BID PO Last administered on 09/19/17 19:43; Start 09/19/17 at 21:00 Duloxetine HCl (Cymbalta) 60 mg DAILY PO ; Start 09/20/17 at 09:00 Active Scripts Active Reported Multivitamins (Multivitamin) 1 Each Tablet 1 Each PO DAILY Seroquel (Quetiapine Fumarate) 50 Mg Tablet 50 Mg PO QHS Seroquel (Quetiapine Fumarate) 25 Mg Tablet 25 Mg PO DAILY Protonix (Pantoprazole Sodium) 20 Mg Tablet.dr 20 Mg PO DAILY Namenda (Memantine Hcl) 10 Mg Tablet 10 Mg PO DAILY Lisinopril 20 Mg Tablet 20 Mg PO DAILY Klonopin (Clonazepam) 0.5 Mg Tablet 0.25 Mg PO DAILY Gabapentin 600 Mg Tablet 600 Mg PO QHS [place] 3 1,000 Mg Softgel ([place]-3 Fatty Acids/Fish Oil) 1 Each Capsule 1 Each PO TID Eliquis (Apixaban) 5 Mg Tablet 5 Mg PO BID Effexor Xr (Venlafaxine Hcl) 75 Mg Cap.er.24h 75 Mg PO DAILY Sinemet 25-100 Mg Tablet (Carbidopa/Levodopa) 1 Each Tablet 1 Tab PO 5XDAY Calcium 600 + Vit D 200 Tablet (Calcium Carbonate/Vitamin D3) 1 Each Tablet 1 Each PO TID I have reviewed the current psychotropics carefully including drug interactions. Risk benefit ratio favors no change other than as noted in my dictated progress note. 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
--- NOTE | 2017-09-20 04:36 | PN ---
DATE: 09/19/2017 This late entry 09/18/2017 covers elements not covered in my initial note 09/18/2017. I met with the patient evening of 09/18/2017. Previous evening per nursing report, the patient was quite delusional, argumentative, repetitive, believed he had come here for surgery consequent to a fall. REVIEW OF SYSTEMS: Ambulation impaired, in his wheelchair, frequently getting out of the wheelchair, setting off the alarm, complains of neck pain, received some Tylenol. No CV, , pulmonary, eye system symptoms on review. MENTAL STATUS EXAM: Oriented to himself and situation. Insight, judgment, recent and remote memory, attention, concentration, fund of knowledge poor consistent with his diagnosis mentioned in my initial note. 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 PLAN: Maintain Namenda, but we will increase it to 10 mg twice a day, start Depakote 125 mg 3 times a day. Check CBC, CMP, valproic acid level in 3 days. Continue Effexor XR 75 mg a day, Klonopin 0.25 mg daily, Seroquel 25 mg in the morning and 50 mg at night. Adjust further as clinically indicated. MAN Felicita CONTRERAS MD DR: ROCIO/afia JOB#: [id number] / [id number]
[2017-09-20] MEDS: ACETAMINOPHEN 650 MG/20.3 ML SOLUTION. PO SCH ×3 (06:00→22:00)
[2017-09-20 06:14] VITALS: BP 177/79
[2017-09-20] MEDS: CARBIDOPA/LEVODOPA 25/100MG TABLET PO SCH ×5 (06:18→19:54)
[2017-09-20] MEDS: MULTIVITAMIN with MINERAL TABLET. PO SCH (08:05)
[2017-09-20] MEDS: OMEGA-3 FATTY ACIDS/FISH OIL 1,000 MG CAPSULE. PO SCH ×3 (08:05→19:54)
[2017-09-20] MEDS: APIXABAN 5 MG TABLET. PO SCH ×2 (08:05→19:54)
[2017-09-20] MEDS: MEMANTINE 10 MG TABLET. PO SCH ×2 (08:05→19:54)
[2017-09-20] MEDS: PANTOPRAZOLE 40 MG TABLET. PO SCH (08:05)
[2017-09-20] MEDS: DIVALPROEX 125 MG CAP.SPRINK PO SCH ×3 (08:05→19:54)
[2017-09-20] MEDS: CALCIUM CARB/VIT D3 500/200 TABLET PO SCH ×3 (08:06→19:54)
[2017-09-20] MEDS: QUEtiapine 25 MG TABLET. PO SCH (08:06)
[2017-09-20] MEDS: clonazePAM 0.5 MG TABLET PO SCH (08:09)
[2017-09-20] MEDS: DULoxetine HCL 60 MG CAPSULE.DR PO SCH (08:10)
[2017-09-20] MEDS: LISINOPRIL 20 MG TABLET PO SCH (08:11)
[2017-09-20] MEDS: METHYL SALICYLATE/MENTHOL TOPICAL OINTMENT 29GM TUBE. TP SCH ×2 (08:11→14:25)
[2017-09-20] MEDS: DONEPEZIL HCL 5 MG TABLET. PO SCH (14:24)
[2017-09-20 16:31] VITALS: BP 152/88
[2017-09-20] MEDS: GABAPENTIN 300 MG CAPSULE. PO SCH (19:54)
[2017-09-20] MEDS: LIDOCAINE (700MG/PATCH) PATCH. TD SCH (19:54)
[2017-09-20] MEDS: QUEtiapine 50 MG TABLET. PO SCH (19:54)
--- NOTE | 2017-09-20 20:10 | PDOC ---
Exam Note: Neto Note: Please also refer to the separate dictated note~for this date of service dictated separately.~Patient seen individually. Discussed the patient with Nursing staff reviewed the chart.~Reviewed interim history and current functioning. Reviewed vital signs,~Labs/ Radiology~and current medications noted below. Continue current treatment with the changes noted in the dictated addendum note Assessment: Vital Signs: Vital Signs Date Time Temp Pulse Resp B/P (MAP) Pulse Ox O2 Delivery O2 Flow Rate FiO2 09/20/17 16:31 98.0 80 19 152/88 (109) 99 09/17/17 06:48 Room Air I&O Intake and Output 09/20/17 07:00 Intake Total 1320 ml Balance 1320 ml Intake Oral 1320 ml # Bowel Movements 1 Current Medications: Meds: Current Medications Acetaminophen (Tylenol) 650 mg PRN Q6HRS PRN PO PAIN / TEMP Last administered on 09/18/17 08:00; Start 09/15/17 at 15:45; Stop 09/18/17 at 15:20; Status DC Multi-Ingredient Ointment (Analgesic [place]) 1 abbey PRN QID PRN TP MUSCLE PAIN; Start 09/15/17 at 15:45 Al Hydroxide/Mg Hydroxide (Mylanta Plus Xs) 15 ml PRN AFTMEALHC PRN PO DYSPEPSIA; Start 09/15/17 at 15:45 Magnesium Hydroxide (Milk Of Magnesia) 2,400 mg PRN QHS PRN PO CONSTIPATION Last administered on 09/17/17 06:24; Start 09/15/17 at 15:45 Apixaban (Eliquis) 5 mg BID PO Last administered on 09/20/17 19:54; Start at 21:00 Carbidopa/Levodopa (Sinemet 25/100) 1 tab 5XDAY PO Last administered on 19:54; Start 09/15/17 at 18:00 Lisinopril (Prinivil) 20 mg DAILY PO Last administered on 09/20/17 08:11; Start 09/16/17 at 09:00 Pantoprazole Sodium (Protonix) 40 mg DAILYAC PO Last administered on 08:05; Start 09/16/17 at 07:30 Calcium/Vitamin D (Oscal D 500mg/ 200uts) 1 tab TID PO Last administered on 19:54; Start 09/15/17 at 21:00 Gabapentin (Neurontin) 600 mg QHS PO Last administered on 09/20/17 19:54; Start 09/15/17 at 21:00 Multivitamins/ Calcium (Thera-M Plus) 1 tab DAILY PO Last administered on 09/20 08:05; Start 09/16/17 at 09:00 Fish Oil (Fish Oil) 1,000 mg TID PO Last administered on 09/20/17 19:54; Start 09/15/17 at 21:00 Clonazepam (KlonoPIN) 0.25 mg DAILY PO Last administered on 09/20/17 08:09; Start 09/16/17 at 09:00 Memantine (Namenda) 10 mg DAILY PO Last administered on 09/19/17 09:38; Start 09/16/17 at 09:00; Stop 09/19/17 at 14:55; Status DC Quetiapine Fumarate (SEROquel) 25 mg DAILY PO Last administered on 09/20/17 08:06; Start 09/16/17 at 09:00 Quetiapine Fumarate (SEROquel) 50 mg QHS PO Last administered on 09/20/17 19: 54; Start 09/15/17 at 21:00 Venlafaxine HCl (Effexor Xr) 75 mg DAILY PO Last administered on 09/19/17 09: 37; Start 09/16/17 at 09:00; Stop 09/19/17 at 18:56; Status DC Divalproex Sodium (Depakote Sprinkles) 125 mg [id number] PO Last administered on 19:54; Start 09/17/17 at 21:00 Acetaminophen (Tylenol) 650 mg Q8HRS PO Last administered on 09/20/17 14:25; Start 09/18/17 at 22:00; Stop 09/25/17 at 21:59 Acetaminophen (Tylenol) 650 mg 1X ONCE PO Last administered on 09/18/17 15: 25; Start 09/18/17 at 15:15; Stop 09/18/17 at 15:20; Status DC Lidocaine (Lidoderm) 1 patch HS TD ; Start 09/18/17 at 21:00 Multi-Ingredient Ointment (Analgesic [place]) 1 abbey BID92 TP Last administered on 09/20/17 14:25; Start 09/19/17 at 09:00; Stop 09/24/17 at 08:59 Memantine (Namenda) 10 mg BID PO Last administered on 09/20/17 19:54; Start 09/19/17 at 21:00 Duloxetine HCl (Cymbalta) 60 mg DAILY PO Last administered on 09/20/17 08:10 ; Start 09/20/17 at 09:00 Donepezil HCl (Aricept) 5 mg DAILY PO Last administered on 09/20/17 14:24; Start 09/20/17 at 11:15; Stop 09/26/17 at 08:00 Donepezil HCl (Aricept) 10 mg DAILY PO ; Start 09/26/17 at 09:00 Active Scripts Active Reported Multivitamins (Multivitamin) 1 Each Tablet 1 Each PO DAILY Seroquel (Quetiapine Fumarate) 50 Mg Tablet 50 Mg PO QHS Seroquel (Quetiapine Fumarate) 25 Mg Tablet 25 Mg PO DAILY Protonix (Pantoprazole Sodium) 20 Mg Tablet.dr 20 Mg PO DAILY Namenda (Memantine Hcl) 10 Mg Tablet 10 Mg PO DAILY Lisinopril 20 Mg Tablet 20 Mg PO DAILY Klonopin (Clonazepam) 0.5 Mg Tablet 0.25 Mg PO DAILY Gabapentin 600 Mg Tablet 600 Mg PO QHS [place] 3 1,000 Mg Softgel ([place]-3 Fatty Acids/Fish Oil) 1 Each Capsule 1 Each PO TID Eliquis (Apixaban) 5 Mg Tablet 5 Mg PO BID Effexor Xr (Venlafaxine Hcl) 75 Mg Cap.er.24h 75 Mg PO DAILY Sinemet 25-100 Mg Tablet (Carbidopa/Levodopa) 1 Each Tablet 1 Tab PO 5XDAY Calcium 600 + Vit D 200 Tablet (Calcium Carbonate/Vitamin D3) 1 Each Tablet 1 Each PO TID I have reviewed the current psychotropics carefully including drug interactions. Risk benefit ratio favors no change other than as noted in my dictated progress note. 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
[2017-09-21 05:51] VITALS: BP 133/89
[2017-09-21] MEDS: ACETAMINOPHEN 650 MG/20.3 ML SOLUTION. PO SCH ×3 (06:00→22:00)
[2017-09-21] MEDS: CARBIDOPA/LEVODOPA 25/100MG TABLET PO SCH ×5 (06:38→20:37)
[2017-09-21] MEDS: PANTOPRAZOLE 40 MG TABLET. PO SCH (07:42)
[2017-09-21] MEDS: OMEGA-3 FATTY ACIDS/FISH OIL 1,000 MG CAPSULE. PO SCH ×3 (07:42→20:36)
[2017-09-21] MEDS: APIXABAN 5 MG TABLET. PO SCH ×2 (07:42→20:37)
[2017-09-21] MEDS: MEMANTINE 10 MG TABLET. PO SCH ×2 (07:42→20:37)
[2017-09-21] MEDS: MULTIVITAMIN with MINERAL TABLET. PO SCH (07:42)
[2017-09-21] MEDS: DIVALPROEX 125 MG CAP.SPRINK PO SCH ×3 (07:42→20:36)
[2017-09-21] MEDS: DONEPEZIL HCL 5 MG TABLET. PO SCH (07:43)
[2017-09-21] MEDS: DULoxetine HCL 60 MG CAPSULE.DR PO SCH (07:43)
[2017-09-21] MEDS: LISINOPRIL 20 MG TABLET PO SCH (07:43)
[2017-09-21] MEDS: QUEtiapine 25 MG TABLET. PO SCH (07:43)
[2017-09-21] MEDS: CALCIUM CARB/VIT D3 500/200 TABLET PO SCH ×3 (07:43→20:36)
[2017-09-21] MEDS: METHYL SALICYLATE/MENTHOL TOPICAL OINTMENT 29GM TUBE. TP SCH ×3 (07:47→15:03)
[2017-09-21] MEDS: clonazePAM 0.5 MG TABLET PO SCH (07:47)
[2017-09-21 07:51] LABS: BASO % 0 % (0-3); EOS # 0.1 x10^3/uL (0.0-0.7); EOS % 1 % (0-3); HEMATOCRIT 39.7 % (39.0-53.0); HEMOGLOBIN 13.8 g/dL (13.0-17.5); LYMPH # 1.2 x10^3/uL (1.0-4.8); LYMPH % 18 % (24-48); MEAN CORPUSCULAR HEMOGLOBIN 32 pg (25-35); MEAN CORPUSCULAR HGB CONC 35 g/dL (31-37); MEAN CORPUSCULAR VOLUME 93 fL (79-100); MONO # 0.3 x10^3/uL (0.0-1.1); MONO % 5 % (0-9); NEUT # 4.9 x10^3uL (1.8-7.7); NEUT % 75 % (31-73); PLATELET COUNT 168 x10^3/uL (140-400); RED BLOOD COUNT 4.27 x10^6/uL (4.30-5.70); RED CELL DISTRIBUTION WIDTH 13.7 % (11.5-14.5); WHITE BLOOD COUNT 6.5 x10^3/uL (4.0-11.0)
[2017-09-21 08:36] LABS: ALBUMIN 3.2 g/dL (3.4-5.0); ALBUMIN/GLOBULIN RATIO 0.8 (1.0-1.7); ALK PHOS 50 U/L (46-116); ALT (SGPT) 17 U/L (16-63); ANION GAP 8 (6-14); AST (SGOT) 24 U/L (15-37); BLOOD UREA NITROGEN 18 mg/dL (8-26); BUN/CREATININE RATIO 15 (6-20); CALCIUM 9.5 mg/dL (8.5-10.1); CARBON DIOXIDE 32 mmol/L (21-32); CHLORIDE 106 mmol/L (98-107); CREATININE 1.2 mg/dL (0.7-1.3); GLUCOSE 112 mg/dL (70-99); POTASSIUM 3.9 mmol/L (3.5-5.1); SODIUM 146 mmol/L (136-145); TOTAL BILIRUBIN 0.6 mg/dL (0.2-1.0)
[2017-09-21 08:37] LABS: VAL ACID 24 mcg/mL (50-100)
[2017-09-21] MEDS: QUEtiapine 50 MG TABLET. PO SCH (20:36)
[2017-09-21] MEDS: GABAPENTIN 300 MG CAPSULE. PO SCH (20:36)
[2017-09-21] MEDS: LIDOCAINE (700MG/PATCH) PATCH. TD SCH ×2 (20:37→21:00)
[2017-09-22] MEDS: ACETAMINOPHEN 650 MG/20.3 ML SOLUTION. PO SCH ×3 (05:43→20:07)
[2017-09-22] MEDS: CARBIDOPA/LEVODOPA 25/100MG TABLET PO SCH ×5 (05:46→20:07)
[2017-09-22 06:17] VITALS: BP 148/88
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
--- NOTE | 2017-09-22 08:07 | PN ---
DATE: 09/19/2017 PSYCHIATRIC PROGRESS NOTE This is a late entry 09/19/2017, covers elements not covered in my initial note 09/19/2017. Met with the patient in the evening of 11/20/2016. The patient has been cooperative, somewhat depressed, tearful at times with short-term memory deficits. REVIEW OF SYSTEMS: Positive for impaired ambulation and wheelchair and rest of the parkinsonian symptoms. No CV, , pulmonary, eye system symptoms on review. Eye contact poor during individual assessment. MENTAL STATUS EXAM: Oriented to himself and situation. Speech, low in rate and rhythm, low in volume. Abstraction fair, computation impaired, language function intact, attention span short. Mood and affect somewhat withdrawn. LABORATORY DATA: Reviewed. IMPRESSION: Unchanged from initial note. PLAN: Continue psychotropics mentioned in my initial note. Adjust further as clinically indicated. Change Effexor to Cymbalta 60 mg a day. MAN Felicita CONTRERAS MD DR: ROCIO/afia JOB#: [id number] / [id number]
[2017-09-22] MEDS: QUEtiapine 25 MG TABLET. PO SCH (08:22)
[2017-09-22] MEDS: OMEGA-3 FATTY ACIDS/FISH OIL 1,000 MG CAPSULE. PO SCH ×3 (08:22→20:06)
[2017-09-22] MEDS: APIXABAN 5 MG TABLET. PO SCH ×2 (08:22→20:06)
[2017-09-22] MEDS: DULoxetine HCL 60 MG CAPSULE.DR PO SCH (08:22)
[2017-09-22] MEDS: CALCIUM CARB/VIT D3 500/200 TABLET PO SCH ×3 (08:23→20:07)
[2017-09-22] MEDS: DONEPEZIL HCL 5 MG TABLET. PO SCH (08:23)
[2017-09-22] MEDS: PANTOPRAZOLE 40 MG TABLET. PO SCH (08:23)
[2017-09-22] MEDS: DIVALPROEX 125 MG CAP.SPRINK PO SCH ×3 (08:23→20:07)
[2017-09-22] MEDS: LISINOPRIL 20 MG TABLET PO SCH (08:23)
[2017-09-22] MEDS: MEMANTINE 10 MG TABLET. PO SCH ×2 (08:23→20:06)
[2017-09-22] MEDS: MULTIVITAMIN with MINERAL TABLET. PO SCH (08:23)
[2017-09-22] MEDS: clonazePAM 0.5 MG TABLET PO SCH (08:26)
[2017-09-22] MEDS: METHYL SALICYLATE/MENTHOL TOPICAL OINTMENT 29GM TUBE. TP SCH ×2 (08:28→14:17)
--- NOTE | 2017-09-22 10:31 | PDOC ---
Exam Note: Neto Note: This is late entry for date of service 09/21/2017.Please also refer to the separate dictated note~for this date of service dictated separately.~Patient seen individually. Discussed the patient with Nursing staff reviewed the chart.~ Reviewed interim history and current functioning. Reviewed vital signs,~Labs/ Radiology~and current medications noted below. Continue current treatment with the changes noted in the dictated addendum note Assessment: Vital Signs: VS - Last 72 Hours, by Label Date Time Temp Pulse Resp B/P (MAP) Pulse Ox O2 Delivery O2 Flow Rate FiO2 09/22/17 08:23 69 148/88 09/22/17 06:17 97.4 69 18 148/88 (108) 96 09/21/17 07:43 80 133/89 09/21/17 05:51 98.0 80 18 133/89 (104) 96 Room Air 09/20/17 16:31 98.0 80 19 152/88 (109) 99 09/20/17 08:11 75 177/79 09/20/17 06:14 97.6 75 16 177/79 (111) 97 09/19/17 16:29 98.6 82 18 120/79 (93) 97 Vital Signs Date Time Temp Pulse Resp B/P (MAP) Pulse Ox O2 Delivery O2 Flow Rate FiO2 09/22/17 08:23 69 148/88 09/22/17 06:17 97.4 18 96 09/21/17 05:51 Room Air I&O Intake and Output 09/22/17 07:00 Intake Total 840 ml Balance 840 ml Intake Oral 840 ml Current Medications: Meds: Current Medications Acetaminophen (Tylenol) 650 mg PRN Q6HRS PRN PO PAIN / TEMP Last administered on 09/18/17 08:00; Start 09/15/17 at 15:45; Stop 09/18/17 at 15:20; Status DC Multi-Ingredient Ointment (Analgesic [place]) 1 abbey PRN QID PRN TP MUSCLE PAIN; Start 09/15/17 at 15:45 Al Hydroxide/Mg Hydroxide (Mylanta Plus Xs) 15 ml PRN AFTMEALHC PRN PO DYSPEPSIA; Start 09/15/17 at 15:45 Magnesium Hydroxide (Milk Of Magnesia) 2,400 mg PRN QHS PRN PO CONSTIPATION Last administered on 09/17/17 06:24; Start 09/15/17 at 15:45 Apixaban (Eliquis) 5 mg BID PO Last administered on 09/22/17 08:22; Start at 21:00 Carbidopa/Levodopa (Sinemet 25/100) 1 tab 5XDAY PO Last administered on 05:46; Start 09/15/17 at 18:00 Lisinopril (Prinivil) 20 mg DAILY PO Last administered on 09/22/17 08:23; Start 09/16/17 at 09:00 Pantoprazole Sodium (Protonix) 40 mg DAILYAC PO Last administered on 08:23; Start 09/16/17 at 07:30 Calcium/Vitamin D (Oscal D 500mg/ 200uts) 1 tab TID PO Last administered on 08:23; Start 09/15/17 at 21:00 Gabapentin (Neurontin) 600 mg QHS PO Last administered on 09/21/17 20:36; Start 09/15/17 at 21:00 Multivitamins/ Calcium (Thera-M Plus) 1 tab DAILY PO Last administered on 09/22 08:23; Start 09/16/17 at 09:00 Fish Oil (Fish Oil) 1,000 mg TID PO Last administered on 09/22/17 08:22; Start 09/15/17 at 21:00 Clonazepam (KlonoPIN) 0.25 mg DAILY PO Last administered on 09/22/17 08:26; Start 09/16/17 at 09:00 Memantine (Namenda) 10 mg DAILY PO Last administered on 09/19/17 09:38; Start 09/16/17 at 09:00; Stop 09/19/17 at 14:55; Status DC Quetiapine Fumarate (SEROquel) 25 mg DAILY PO Last administered on 09/22/17 08:22; Start 09/16/17 at 09:00 Quetiapine Fumarate (SEROquel) 50 mg QHS PO Last administered on 09/21/17 20: 36; Start 09/15/17 at 21:00 Venlafaxine HCl (Effexor Xr) 75 mg DAILY PO Last administered on 09/19/17 09: 37; Start 09/16/17 at 09:00; Stop 09/19/17 at 18:56; Status DC Divalproex Sodium (Depakote Sprinkles) 125 mg [id number] PO Last administered on 08:23; Start 09/17/17 at 21:00 Acetaminophen (Tylenol) 650 mg Q8HRS PO Last administered on 09/21/17 14:42; Start 09/18/17 at 22:00; Stop 09/25/17 at 21:59 Acetaminophen (Tylenol) 650 mg 1X ONCE PO Last administered on 09/18/17 15: 25; Start 09/18/17 at 15:15; Stop 09/18/17 at 15:20; Status DC Lidocaine (Lidoderm) 1 patch HS TD ; Start 09/18/17 at 21:00 Multi-Ingredient Ointment (Analgesic [place]) 1 abbey BID92 TP Last administered on 09/22/17 08:28; Start 09/19/17 at 09:00; Stop 09/24/17 at 08:59 Memantine (Namenda) 10 mg BID PO Last administered on 09/22/17 08:23; Start 09/19/17 at 21:00 Duloxetine HCl (Cymbalta) 60 mg DAILY PO Last administered on 09/22/17 08:22 ; Start 09/20/17 at 09:00 Donepezil HCl (Aricept) 5 mg DAILY PO Last administered on 09/22/17 08:23; Start 09/20/17 at 11:15; Stop 09/26/17 at 08:00 Donepezil HCl (Aricept) 10 mg DAILY PO ; Start 09/26/17 at 09:00 Active Scripts Active Reported Multivitamins (Multivitamin) 1 Each Tablet 1 Each PO DAILY Seroquel (Quetiapine Fumarate) 50 Mg Tablet 50 Mg PO QHS Seroquel (Quetiapine Fumarate) 25 Mg Tablet 25 Mg PO DAILY Protonix (Pantoprazole Sodium) 20 Mg Tablet.dr 20 Mg PO DAILY Namenda (Memantine Hcl) 10 Mg Tablet 10 Mg PO DAILY Lisinopril 20 Mg Tablet 20 Mg PO DAILY Klonopin (Clonazepam) 0.5 Mg Tablet 0.25 Mg PO DAILY Gabapentin 600 Mg Tablet 600 Mg PO QHS [place] 3 1,000 Mg Softgel ([place]-3 Fatty Acids/Fish Oil) 1 Each Capsule 1 Each PO TID Eliquis (Apixaban) 5 Mg Tablet 5 Mg PO BID Effexor Xr (Venlafaxine Hcl) 75 Mg Cap.er.24h 75 Mg PO DAILY Sinemet 25-100 Mg Tablet (Carbidopa/Levodopa) 1 Each Tablet 1 Tab PO 5XDAY Calcium 600 + Vit D 200 Tablet (Calcium Carbonate/Vitamin D3) 1 Each Tablet 1 Each PO TID I have reviewed the current psychotropics carefully including drug interactions. Risk benefit ratio favors no change other than as noted in my dictated progress note. 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
[2017-09-22 16:39] VITALS: BP 160/98
[2017-09-22] MEDS: QUEtiapine 50 MG TABLET. PO SCH (20:06)
[2017-09-22] MEDS: GABAPENTIN 300 MG CAPSULE. PO SCH (20:06)
[2017-09-22] MEDS: LIDOCAINE (700MG/PATCH) PATCH. TD SCH (20:07)
--- NOTE | 2017-09-22 21:44 | PDOC ---
Exam Note: Neto Note: Please also refer to the separate dictated note~for this date of service dictated separately.~Patient seen individually. Discussed the patient with Nursing staff reviewed the chart.~Reviewed interim history and current functioning. Reviewed vital signs,~Labs/ Radiology~and current medications noted below. Continue current treatment with the changes noted in the dictated addendum note Assessment: Vital Signs: Vital Signs Date Time Temp Pulse Resp B/P (MAP) Pulse Ox O2 Delivery O2 Flow Rate FiO2 09/22/17 16:39 97.7 92 18 160/98 (118) 97 09/21/17 05:51 Room Air I&O Intake and Output 09/22/17 07:00 Intake Total 840 ml Balance 840 ml Intake Oral 840 ml Current Medications: Meds: Current Medications Acetaminophen (Tylenol) 650 mg PRN Q6HRS PRN PO PAIN / TEMP Last administered on 09/18/17 08:00; Start 09/15/17 at 15:45; Stop 09/18/17 at 15:20; Status DC Multi-Ingredient Ointment (Analgesic [place]) 1 abbey PRN QID PRN TP MUSCLE PAIN; Start 09/15/17 at 15:45 Al Hydroxide/Mg Hydroxide (Mylanta Plus Xs) 15 ml PRN AFTMEALHC PRN PO DYSPEPSIA; Start 09/15/17 at 15:45 Magnesium Hydroxide (Milk Of Magnesia) 2,400 mg PRN QHS PRN PO CONSTIPATION Last administered on 09/17/17 06:24; Start 09/15/17 at 15:45 Apixaban (Eliquis) 5 mg BID PO Last administered on 09/22/17 20:06; Start at 21:00 Carbidopa/Levodopa (Sinemet 25/100) 1 tab 5XDAY PO Last administered on 20:07; Start 09/15/17 at 18:00 Lisinopril (Prinivil) 20 mg DAILY PO Last administered on 09/22/17 08:23; Start 09/16/17 at 09:00 Pantoprazole Sodium (Protonix) 40 mg DAILYAC PO Last administered on 08:23; Start 09/16/17 at 07:30 Calcium/Vitamin D (Oscal D 500mg/ 200uts) 1 tab TID PO Last administered on 20:07; Start 09/15/17 at 21:00 Gabapentin (Neurontin) 600 mg QHS PO Last administered on 09/22/17 20:06; Start 09/15/17 at 21:00 Multivitamins/ Calcium (Thera-M Plus) 1 tab DAILY PO Last administered on 09/22 08:23; Start 09/16/17 at 09:00 Fish Oil (Fish Oil) 1,000 mg TID PO Last administered on 09/22/17 20:06; Start 09/15/17 at 21:00 Clonazepam (KlonoPIN) 0.25 mg DAILY PO Last administered on 09/22/17 08:26; Start 09/16/17 at 09:00; Stop 09/22/17 at 19:30; Status DC Memantine (Namenda) 10 mg DAILY PO Last administered on 09/19/17 09:38; Start 09/16/17 at 09:00; Stop 09/19/17 at 14:55; Status DC Quetiapine Fumarate (SEROquel) 25 mg DAILY PO Last administered on 09/22/17 08:22; Start 09/16/17 at 09:00 Quetiapine Fumarate (SEROquel) 50 mg QHS PO Last administered on 09/22/17 20: 06; Start 09/15/17 at 21:00 Venlafaxine HCl (Effexor Xr) 75 mg DAILY PO Last administered on 09/19/17 09: 37; Start 09/16/17 at 09:00; Stop 09/19/17 at 18:56; Status DC Divalproex Sodium (Depakote Sprinkles) 125 mg [id number] PO Last administered on 20:07; Start 09/17/17 at 21:00 Acetaminophen (Tylenol) 650 mg Q8HRS PO Last administered on 09/22/17 14:00; Start 09/18/17 at 22:00; Stop 09/25/17 at 21:59 Acetaminophen (Tylenol) 650 mg 1X ONCE PO Last administered on 09/18/17 15: 25; Start 09/18/17 at 15:15; Stop 09/18/17 at 15:20; Status DC Lidocaine (Lidoderm) 1 patch HS TD ; Start 09/18/17 at 21:00 Multi-Ingredient Ointment (Analgesic [employer]) 1 abbey BID92 TP Last administered on 09/22/17 14:17; Start 09/19/17 at 09:00; Stop 09/24/17 at 08:59 Memantine (Namenda) 10 mg BID PO Last administered on 09/22/17 20:06; Start 09/19/17 at 21:00 Duloxetine HCl (Cymbalta) 60 mg DAILY PO Last administered on 09/22/17 08:22 ; Start 09/20/17 at 09:00 Donepezil HCl (Aricept) 5 mg DAILY PO Last administered on 09/22/17 08:23; Start 09/20/17 at 11:15; Stop 09/26/17 at 08:00 Donepezil HCl (Aricept) 10 mg DAILY PO ; Start 09/26/17 at 09:00 Active Scripts Active Reported Multivitamins (Multivitamin) 1 Each Tablet 1 Each PO DAILY Seroquel (Quetiapine Fumarate) 50 Mg Tablet 50 Mg PO QHS Seroquel (Quetiapine Fumarate) 25 Mg Tablet 25 Mg PO DAILY Protonix (Pantoprazole Sodium) 20 Mg Tablet.dr 20 Mg PO DAILY Namenda (Memantine Hcl) 10 Mg Tablet 10 Mg PO DAILY Lisinopril 20 Mg Tablet 20 Mg PO DAILY Klonopin (Clonazepam) 0.5 Mg Tablet 0.25 Mg PO DAILY Gabapentin 600 Mg Tablet 600 Mg PO QHS [place] 3 1,000 Mg Softgel ([place]-3 Fatty Acids/Fish Oil) 1 Each Capsule 1 Each PO TID Eliquis (Apixaban) 5 Mg Tablet 5 Mg PO BID Effexor Xr (Venlafaxine Hcl) 75 Mg Cap.er.24h 75 Mg PO DAILY Sinemet 25-100 Mg Tablet (Carbidopa/Levodopa) 1 Each Tablet 1 Tab PO 5XDAY Calcium 600 + Vit D 200 Tablet (Calcium Carbonate/Vitamin D3) 1 Each Tablet 1 Each PO TID I have reviewed the current psychotropics carefully including drug interactions. Risk benefit ratio favors no change other than as noted in my dictated progress note. 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
[2017-09-23] MEDS: ACETAMINOPHEN 650 MG/20.3 ML SOLUTION. PO SCH ×3 (05:02→20:39)
[2017-09-23] MEDS: CARBIDOPA/LEVODOPA 25/100MG TABLET PO SCH ×5 (05:02→20:39)
[2017-09-23 05:51] VITALS: BP 134/86
[2017-09-23] MEDS: PANTOPRAZOLE 40 MG TABLET. PO SCH (07:39)
[2017-09-23] MEDS: DIVALPROEX 125 MG CAP.SPRINK PO SCH ×3 (07:40→20:38)
[2017-09-23] MEDS: MULTIVITAMIN with MINERAL TABLET. PO SCH (07:40)
[2017-09-23] MEDS: APIXABAN 5 MG TABLET. PO SCH ×2 (07:40→20:38)
[2017-09-23] MEDS: DULoxetine HCL 60 MG CAPSULE.DR PO SCH (07:40)
[2017-09-23] MEDS: QUEtiapine 25 MG TABLET. PO SCH (07:40)
[2017-09-23] MEDS: MEMANTINE 10 MG TABLET. PO SCH ×2 (07:40→20:39)
[2017-09-23] MEDS: DONEPEZIL HCL 5 MG TABLET. PO SCH (07:40)
[2017-09-23] MEDS: LISINOPRIL 20 MG TABLET PO SCH (07:40)
[2017-09-23] MEDS: OMEGA-3 FATTY ACIDS/FISH OIL 1,000 MG CAPSULE. PO SCH ×3 (07:40→20:39)
[2017-09-23] MEDS: CALCIUM CARB/VIT D3 500/200 TABLET PO SCH ×3 (07:40→20:39)
[2017-09-23] MEDS: METHYL SALICYLATE/MENTHOL TOPICAL OINTMENT 29GM TUBE. TP SCH ×2 (07:41→13:33)
--- NOTE | 2017-09-23 08:54 | PN ---
DATE: 09/21/2017 PSYCHIATRIC PROGRESS NOTE This is a late entry 09/21/2017, covers elements not covered in my initial note 09/21/2017. SUBJECTIVE: The patient is quite calm the previous evening cooperative, suspicious. Valproic acid level is 24, somewhat sedated. REVIEW OF SYSTEMS: Ambulation impaired, in wheelchair. No CV, , pulmonary, eye, system symptoms on review. Eye contact is poor. MENTAL STATUS EXAM: Speech low in rate and rhythm, low in volume, coherent. Much of this is consistent with Parkinson's. No active suicidal or homicidal ideation. Speech low in volume. Abstraction fair, computation impaired, language function intact. Attention span short. IMPRESSION: Major depressive disorder with possible psychotic features, bipolar 1 disorder, mixed with psychotic features. Major neurocognitive disorder, Alzheimer, vascular with depression, delusion. Rest unchanged. PLAN: Continue current psychotropics mentioned in the initial note. Valproic acid level is 24, subtherapeutic, but clinically adequate for now. MAN Felicita CONTRERAS MD DR: ROCIO/afia JOB#: [id number] / [id number]
--- NOTE | 2017-09-23 08:58 | PN ---
DATE: 09/22/2017 PSYCHIATRIC PROGRESS NOTE This note covers elements not covered in my initial note 09/22/2017. SUBJECTIVE: The patient remains confused, withdrawn, talked to his in the morning, forgot that he done it. Valproic acid level 24. REVIEW OF SYSTEMS: Ambulation impaired, in wheelchair. No CV, , pulmonary, eye, ENT system symptoms on review. MENTAL STATUS EXAM: Oriented to himself and situations, eye contact is poor. He is in a wheelchair. Abstraction fair, computation impaired, language function intact. Mood and affect is somewhat withdrawn. IMPRESSION: Major depressive disorder, recurrent with psychotic features; anxiety disorder, unspecified; impulse control disorder, unspecified; major neurocognitive disorder, possibly secondary to Parkinson's, Lewy body with delusion, depression, behavioral disturbance. PLAN: Continue psychotropics mentioned in my initial note. avoid benzodiazepine. MAN Felicita CONTRERAS MD DR: ROCIO/afia JOB#: [id number] / [id number]
[2017-09-23 16:08] VITALS: BP 143/90
--- NOTE | 2017-09-23 20:14 | PDOC ---
Exam Note: Neto Note: Please also refer to the separate dictated note~for this date of service dictated separately.~Patient seen individually. Discussed the patient with Nursing staff reviewed the chart.~Reviewed interim history and current functioning. Reviewed vital signs,~Labs/ Radiology~and current medications noted below. Continue current treatment with the changes noted in the dictated addendum note Assessment: Vital Signs: Vital Signs Date Time Temp Pulse Resp B/P (MAP) Pulse Ox O2 Delivery O2 Flow Rate FiO2 09/23/17 16:08 98.1 88 20 143/90 (107) 99 09/21/17 05:51 Room Air I&O Intake and Output 09/23/17 07:00 Intake Total 1320 ml Balance 1320 ml Intake Oral 1320 ml Current Medications: Meds: Current Medications Acetaminophen (Tylenol) 650 mg PRN Q6HRS PRN PO PAIN / TEMP Last administered on 09/18/17 08:00; Start 09/15/17 at 15:45; Stop 09/18/17 at 15:20; Status DC Multi-Ingredient Ointment (Analgesic [place]) 1 abbey PRN QID PRN TP MUSCLE PAIN; Start 09/15/17 at 15:45 Al Hydroxide/Mg Hydroxide (Mylanta Plus Xs) 15 ml PRN AFTMEALHC PRN PO DYSPEPSIA; Start 09/15/17 at 15:45 Magnesium Hydroxide (Milk Of Magnesia) 2,400 mg PRN QHS PRN PO CONSTIPATION Last administered on 09/17/17 06:24; Start 09/15/17 at 15:45 Apixaban (Eliquis) 5 mg BID PO Last administered on 09/23/17 07:40; Start at 21:00 Carbidopa/Levodopa (Sinemet 25/100) 1 tab 5XDAY PO Last administered on 17:19; Start 09/15/17 at 18:00 Lisinopril (Prinivil) 20 mg DAILY PO Last administered on 09/23/17 07:40; Start 09/16/17 at 09:00 Pantoprazole Sodium (Protonix) 40 mg DAILYAC PO Last administered on 07:39; Start 09/16/17 at 07:30 Calcium/Vitamin D (Oscal D 500mg/ 200uts) 1 tab TID PO Last administered on 13:31; Start 09/15/17 at 21:00 Gabapentin (Neurontin) 600 mg QHS PO Last administered on 09/22/17 20:06; Start 09/15/17 at 21:00 Multivitamins/ Calcium (Thera-M Plus) 1 tab DAILY PO Last administered on 09/23 07:40; Start 09/16/17 at 09:00 Fish Oil (Fish Oil) 1,000 mg TID PO Last administered on 09/23/17 13:31; Start 09/15/17 at 21:00 Clonazepam (KlonoPIN) 0.25 mg DAILY PO Last administered on 09/22/17 08:26; Start 09/16/17 at 09:00; Stop 09/22/17 at 19:30; Status DC Memantine (Namenda) 10 mg DAILY PO Last administered on 09/19/17 09:38; Start 09/16/17 at 09:00; Stop 09/19/17 at 14:55; Status DC Quetiapine Fumarate (SEROquel) 25 mg DAILY PO Last administered on 09/23/17 07:40; Start 09/16/17 at 09:00 Quetiapine Fumarate (SEROquel) 50 mg QHS PO Last administered on 09/22/17 20: 06; Start 09/15/17 at 21:00 Venlafaxine HCl (Effexor Xr) 75 mg DAILY PO Last administered on 09/19/17 09: 37; Start 09/16/17 at 09:00; Stop 09/19/17 at 18:56; Status DC Divalproex Sodium (Depakote Sprinkles) 125 mg [id number] PO Last administered on 13:31; Start 09/17/17 at 21:00 Acetaminophen (Tylenol) 650 mg Q8HRS PO Last administered on 09/22/17 14:00; Start 09/18/17 at 22:00; Stop 09/25/17 at 21:59 Acetaminophen (Tylenol) 650 mg 1X ONCE PO Last administered on 09/18/17 15: 25; Start 09/18/17 at 15:15; Stop 09/18/17 at 15:20; Status DC Lidocaine (Lidoderm) 1 patch HS TD ; Start 09/18/17 at 21:00 Multi-Ingredient Ointment (Analgesic [place]) 1 abbey BID92 TP Last administered on 09/23/17 13:33; Start 09/19/17 at 09:00; Stop 09/24/17 at 08:59 Memantine (Namenda) 10 mg BID PO Last administered on 09/23/17 07:40; Start 09/19/17 at 21:00 Duloxetine HCl (Cymbalta) 60 mg DAILY PO Last administered on 09/23/17 07:40 ; Start 09/20/17 at 09:00 Donepezil HCl (Aricept) 5 mg DAILY PO Last administered on 09/23/17 07:40; Start 09/20/17 at 11:15; Stop 09/26/17 at 08:00 Donepezil HCl (Aricept) 10 mg DAILY PO ; Start 09/26/17 at 09:00 Active Scripts Active Reported Multivitamins (Multivitamin) 1 Each Tablet 1 Each PO DAILY Seroquel (Quetiapine Fumarate) 50 Mg Tablet 50 Mg PO QHS Seroquel (Quetiapine Fumarate) 25 Mg Tablet 25 Mg PO DAILY Protonix (Pantoprazole Sodium) 20 Mg Tablet.dr 20 Mg PO DAILY Namenda (Memantine Hcl) 10 Mg Tablet 10 Mg PO DAILY Lisinopril 20 Mg Tablet 20 Mg PO DAILY Klonopin (Clonazepam) 0.5 Mg Tablet 0.25 Mg PO DAILY Gabapentin 600 Mg Tablet 600 Mg PO QHS [place] 3 1,000 Mg Softgel ([place]-3 Fatty Acids/Fish Oil) 1 Each Capsule 1 Each PO TID Eliquis (Apixaban) 5 Mg Tablet 5 Mg PO BID Effexor Xr (Venlafaxine Hcl) 75 Mg Cap.er.24h 75 Mg PO DAILY Sinemet 25-100 Mg Tablet (Carbidopa/Levodopa) 1 Each Tablet 1 Tab PO 5XDAY Calcium 600 + Vit D 200 Tablet (Calcium Carbonate/Vitamin D3) 1 Each Tablet 1 Each PO TID I have reviewed the current psychotropics carefully including drug interactions. Risk benefit ratio favors no change other than as noted in my dictated progress note. 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
[2017-09-23] MEDS: LIDOCAINE (700MG/PATCH) PATCH. TD SCH (20:39)
[2017-09-23] MEDS: QUEtiapine 50 MG TABLET. PO SCH (20:39)
[2017-09-23] MEDS: GABAPENTIN 300 MG CAPSULE. PO SCH (20:39)
[2017-09-24] MEDS: ACETAMINOPHEN 650 MG/20.3 ML SOLUTION. PO SCH ×3 (06:00→19:43)
[2017-09-24 06:35] VITALS: BP 140/90
[2017-09-24] MEDS: CARBIDOPA/LEVODOPA 25/100MG TABLET PO SCH ×5 (06:37→19:43)
[2017-09-24] MEDS: DULoxetine HCL 60 MG CAPSULE.DR PO SCH (07:58)
[2017-09-24] MEDS: PANTOPRAZOLE 40 MG TABLET. PO SCH (07:58)
[2017-09-24] MEDS: DIVALPROEX 125 MG CAP.SPRINK PO SCH ×4 (07:58→19:42)
[2017-09-24] MEDS: QUEtiapine 25 MG TABLET. PO SCH (07:59)
[2017-09-24] MEDS: MULTIVITAMIN with MINERAL TABLET. PO SCH (07:59)
[2017-09-24] MEDS: OMEGA-3 FATTY ACIDS/FISH OIL 1,000 MG CAPSULE. PO SCH ×3 (07:59→19:42)
[2017-09-24] MEDS: MEMANTINE 10 MG TABLET. PO SCH ×2 (07:59→19:42)
[2017-09-24] MEDS: DONEPEZIL HCL 5 MG TABLET. PO SCH (07:59)
[2017-09-24] MEDS: LISINOPRIL 20 MG TABLET PO SCH (07:59)
[2017-09-24] MEDS: CALCIUM CARB/VIT D3 500/200 TABLET PO SCH ×3 (07:59→19:42)
[2017-09-24] MEDS: APIXABAN 5 MG TABLET. PO SCH ×2 (08:00→19:42)
[2017-09-24 16:00] VITALS: BP 113/69
[2017-09-24] MEDS: GABAPENTIN 300 MG CAPSULE. PO SCH (19:42)
[2017-09-24] MEDS: QUEtiapine 50 MG TABLET. PO SCH (19:42)
[2017-09-24] MEDS: LIDOCAINE (700MG/PATCH) PATCH. TD SCH (19:43)
--- NOTE | 2017-09-24 20:04 | PDOC ---
Exam Note: Neto Note: Please also refer to the separate dictated note~for this date of service dictated separately.~Patient seen individually. Discussed the patient with Nursing staff reviewed the chart.~Reviewed interim history and current functioning. Reviewed vital signs,~Labs/ Radiology~and current medications noted below. Continue current treatment with the changes noted in the dictated addendum note Assessment: Vital Signs: Vital Signs Date Time Temp Pulse Resp B/P (MAP) Pulse Ox O2 Delivery O2 Flow Rate FiO2 09/24/17 16:00 97.5 92 20 113/69 (84) 97 09/21/17 05:51 Room Air I&O Intake and Output 09/24/17 07:00 Intake Total 1200 ml Balance 1200 ml Intake Oral 1200 ml # Voids 2 # Bowel Movements 1 Current Medications: Meds: Current Medications Acetaminophen (Tylenol) 650 mg PRN Q6HRS PRN PO PAIN / TEMP Last administered on 09/18/17 08:00; Start 09/15/17 at 15:45; Stop 09/18/17 at 15:20; Status DC Multi-Ingredient Ointment (Analgesic [place]) 1 abbey PRN QID PRN TP MUSCLE PAIN; Start 09/15/17 at 15:45 Al Hydroxide/Mg Hydroxide (Mylanta Plus Xs) 15 ml PRN AFTMEALHC PRN PO DYSPEPSIA; Start 09/15/17 at 15:45 Magnesium Hydroxide (Milk Of Magnesia) 2,400 mg PRN QHS PRN PO CONSTIPATION Last administered on 09/17/17 06:24; Start 09/15/17 at 15:45 Apixaban (Eliquis) 5 mg BID PO Last administered on 09/24/17 19:42; Start at 21:00 Carbidopa/Levodopa (Sinemet 25/100) 1 tab 5XDAY PO Last administered on 19:43; Start 09/15/17 at 18:00 Lisinopril (Prinivil) 20 mg DAILY PO Last administered on 09/24/17 07:59; Start 09/16/17 at 09:00 Pantoprazole Sodium (Protonix) 40 mg DAILYAC PO Last administered on 07:58; Start 09/16/17 at 07:30 Calcium/Vitamin D (Oscal D 500mg/ 200uts) 1 tab TID PO Last administered on 19:42; Start 09/15/17 at 21:00 Gabapentin (Neurontin) 600 mg QHS PO Last administered on 09/24/17 19:42; Start 09/15/17 at 21:00 Multivitamins/ Calcium (Thera-M Plus) 1 tab DAILY PO Last administered on 09/24 07:59; Start 09/16/17 at 09:00 Fish Oil (Fish Oil) 1,000 mg TID PO Last administered on 09/24/17 19:42; Start 09/15/17 at 21:00 Clonazepam (KlonoPIN) 0.25 mg DAILY PO Last administered on 09/22/17 08:26; Start 09/16/17 at 09:00; Stop 09/22/17 at 19:30; Status DC Memantine (Namenda) 10 mg DAILY PO Last administered on 09/19/17 09:38; Start 09/16/17 at 09:00; Stop 09/19/17 at 14:55; Status DC Quetiapine Fumarate (SEROquel) 25 mg DAILY PO Last administered on 09/24/17 07:59; Start 09/16/17 at 09:00 Quetiapine Fumarate (SEROquel) 50 mg QHS PO Last administered on 09/24/17 19: 42; Start 09/15/17 at 21:00 Venlafaxine HCl (Effexor Xr) 75 mg DAILY PO Last administered on 09/19/17 09: 37; Start 09/16/17 at 09:00; Stop 09/19/17 at 18:56; Status DC Divalproex Sodium (Depakote Sprinkles) 125 mg [id number] PO Last administered on 19:42; Start 09/17/17 at 21:00 Acetaminophen (Tylenol) 650 mg Q8HRS PO Last administered on 09/22/17 14:00; Start 09/18/17 at 22:00; Stop 09/25/17 at 21:59 Acetaminophen (Tylenol) 650 mg 1X ONCE PO Last administered on 09/18/17 15: 25; Start 09/18/17 at 15:15; Stop 09/18/17 at 15:20; Status DC Lidocaine (Lidoderm) 1 patch HS TD ; Start 09/18/17 at 21:00 Multi-Ingredient Ointment (Analgesic [place]) 1 abbey BID92 TP Last administered on 09/23/17 13:33; Start 09/19/17 at 09:00; Stop 09/24/17 at 08:59; Status DC Memantine (Namenda) 10 mg BID PO Last administered on 09/24/17 19:42; Start 09/19/17 at 21:00 Duloxetine HCl (Cymbalta) 60 mg DAILY PO Last administered on 09/24/17 07:58 ; Start 09/20/17 at 09:00 Donepezil HCl (Aricept) 5 mg DAILY PO Last administered on 09/24/17 07:59; Start 09/20/17 at 11:15; Stop 09/26/17 at 08:00 Donepezil HCl (Aricept) 10 mg DAILY PO ; Start 09/26/17 at 09:00 Active Scripts Active Reported Multivitamins (Multivitamin) 1 Each Tablet 1 Each PO DAILY Seroquel (Quetiapine Fumarate) 50 Mg Tablet 50 Mg PO QHS Seroquel (Quetiapine Fumarate) 25 Mg Tablet 25 Mg PO DAILY Protonix (Pantoprazole Sodium) 20 Mg Tablet.dr 20 Mg PO DAILY Namenda (Memantine Hcl) 10 Mg Tablet 10 Mg PO DAILY Lisinopril 20 Mg Tablet 20 Mg PO DAILY Klonopin (Clonazepam) 0.5 Mg Tablet 0.25 Mg PO DAILY Gabapentin 600 Mg Tablet 600 Mg PO QHS [place] 3 1,000 Mg Softgel ([place]-3 Fatty Acids/Fish Oil) 1 Each Capsule 1 Each PO TID Eliquis (Apixaban) 5 Mg Tablet 5 Mg PO BID Effexor Xr (Venlafaxine Hcl) 75 Mg Cap.er.24h 75 Mg PO DAILY Sinemet 25-100 Mg Tablet (Carbidopa/Levodopa) 1 Each Tablet 1 Tab PO 5XDAY Calcium 600 + Vit D 200 Tablet (Calcium Carbonate/Vitamin D3) 1 Each Tablet 1 Each PO TID I have reviewed the current psychotropics carefully including drug interactions. Risk benefit ratio favors no change other than as noted in my dictated progress note. 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
[2017-09-25] MEDS: CARBIDOPA/LEVODOPA 25/100MG TABLET PO SCH ×5 (05:07→19:37)
--- NOTE | 2017-09-25 05:10 | PN ---
DATE: 09/23/2017 This late entry for 09/23/2017 covers elements not covered in my initial note of 09/23/2017. SUBJECTIVE: I met with the patient in the evening of 09/23/2017. Overall, the patient remains withdrawn, writing things on his legs something he got from the telephone conversation with his . He is confused, pleasant, compliant, appears with significant Parkinsonian features in speech. He had a good night the previous evening. REVIEW OF SYSTEMS: Ambulation impaired, in wheelchair. No CV, , pulmonary, eye system symptoms on review. MENTAL STATUS EXAM: Oriented to himself and situation. Speech moderate latency, low in rate and rhythm, low in volume, often responses monosyllabic. Abstraction fair, computation impaired, language function intact, attention span short. Mood and affect withdrawn. LABORATORY DATA: Reviewed. IMPRESSION: Major depressive disorder, recurrent, major neurocognitive disorder secondary to Parkinson's, possibly Lewy body with depression, delusions. Rest unchanged. PLAN: Continue current psychotropics, Cymbalta, Namenda, Seroquel, Depakote, Aricept. Valproic acid level 24. Adjust further as clinically indicated. MAN Felicita CONTRERAS MD DR: ROCIO/afia JOB#: [id number] / [id number]
[2017-09-25] MEDS: ACETAMINOPHEN 650 MG/20.3 ML SOLUTION. PO SCH ×2 (06:00→14:00)
[2017-09-25 06:24] VITALS: BP 102/70
[2017-09-25] MEDS: DIVALPROEX 125 MG CAP.SPRINK PO SCH ×3 (08:33→19:37)
[2017-09-25] MEDS: QUEtiapine 25 MG TABLET. PO SCH (08:33)
[2017-09-25] MEDS: PANTOPRAZOLE 40 MG TABLET. PO SCH (08:33)
[2017-09-25] MEDS: CALCIUM CARB/VIT D3 500/200 TABLET PO SCH ×3 (08:33→19:37)
[2017-09-25] MEDS: OMEGA-3 FATTY ACIDS/FISH OIL 1,000 MG CAPSULE. PO SCH ×3 (08:33→19:37)
[2017-09-25] MEDS: LISINOPRIL 20 MG TABLET PO SCH (08:33)
[2017-09-25] MEDS: DULoxetine HCL 60 MG CAPSULE.DR PO SCH (08:33)
[2017-09-25] MEDS: MEMANTINE 10 MG TABLET. PO SCH ×2 (08:33→19:37)
[2017-09-25] MEDS: DONEPEZIL HCL 5 MG TABLET. PO SCH (08:33)
[2017-09-25] MEDS: APIXABAN 5 MG TABLET. PO SCH ×2 (08:34→19:37)
[2017-09-25] MEDS: MULTIVITAMIN with MINERAL TABLET. PO SCH (08:34)
[2017-09-25 15:41] VITALS: BP 126/82
[2017-09-25] MEDS: QUEtiapine 50 MG TABLET. PO SCH (19:37)
[2017-09-25] MEDS: GABAPENTIN 300 MG CAPSULE. PO SCH (19:37)
[2017-09-25] MEDS: MAGNESIUM HYDROXIDE 2,400 MG/30 ML ORAL.SUSP. PO PRN (19:37)
[2017-09-25] MEDS: LIDOCAINE (700MG/PATCH) PATCH. TD SCH (19:38)
--- NOTE | 2017-09-25 20:08 | PDOC ---
Exam Note: Neto Note: Please also refer to the separate dictated note~for this date of service dictated separately.~Patient seen individually. Discussed the patient with Nursing staff reviewed the chart.~Reviewed interim history and current functioning. Reviewed vital signs,~Labs/ Radiology~and current medications noted below. Continue current treatment with the changes noted in the dictated addendum note Assessment: Vital Signs: Vital Signs Date Time Temp Pulse Resp B/P (MAP) Pulse Ox O2 Delivery O2 Flow Rate FiO2 09/25/17 15:41 98.1 87 20 126/82 (97) 100 09/21/17 05:51 Room Air I&O Intake and Output 09/25/17 07:00 Intake Total 1140 ml Balance 1140 ml Intake Oral 1140 ml Current Medications: Meds: Current Medications Acetaminophen (Tylenol) 650 mg PRN Q6HRS PRN PO PAIN / TEMP Last administered on 09/18/17 08:00; Start 09/15/17 at 15:45; Stop 09/18/17 at 15:20; Status DC Multi-Ingredient Ointment (Analgesic [place]) 1 abbey PRN QID PRN TP MUSCLE PAIN; Start 09/15/17 at 15:45 Al Hydroxide/Mg Hydroxide (Mylanta Plus Xs) 15 ml PRN AFTMEALHC PRN PO DYSPEPSIA; Start 09/15/17 at 15:45 Magnesium Hydroxide (Milk Of Magnesia) 2,400 mg PRN QHS PRN PO CONSTIPATION Last administered on 09/25/17 19:37; Start 09/15/17 at 15:45 Apixaban (Eliquis) 5 mg BID PO Last administered on 09/25/17 19:37; Start at 21:00 Carbidopa/Levodopa (Sinemet 25/100) 1 tab 5XDAY PO Last administered on 19:37; Start 09/15/17 at 18:00 Lisinopril (Prinivil) 20 mg DAILY PO Last administered on 09/25/17 08:33; Start 09/16/17 at 09:00 Pantoprazole Sodium (Protonix) 40 mg DAILYAC PO Last administered on 08:33; Start 09/16/17 at 07:30 Calcium/Vitamin D (Oscal D 500mg/ 200uts) 1 tab TID PO Last administered on 19:37; Start 09/15/17 at 21:00 Gabapentin (Neurontin) 600 mg QHS PO Last administered on 09/25/17 19:37; Start 09/15/17 at 21:00 Multivitamins/ Calcium (Thera-M Plus) 1 tab DAILY PO Last administered on 09/25 08:34; Start 09/16/17 at 09:00 Fish Oil (Fish Oil) 1,000 mg TID PO Last administered on 09/25/17 19:37; Start 09/15/17 at 21:00 Clonazepam (KlonoPIN) 0.25 mg DAILY PO Last administered on 09/22/17 08:26; Start 09/16/17 at 09:00; Stop 09/22/17 at 19:30; Status DC Memantine (Namenda) 10 mg DAILY PO Last administered on 09/19/17 09:38; Start 09/16/17 at 09:00; Stop 09/19/17 at 14:55; Status DC Quetiapine Fumarate (SEROquel) 25 mg DAILY PO Last administered on 09/25/17 08:33; Start 09/16/17 at 09:00 Quetiapine Fumarate (SEROquel) 50 mg QHS PO Last administered on 09/25/17 19: 37; Start 09/15/17 at 21:00 Venlafaxine HCl (Effexor Xr) 75 mg DAILY PO Last administered on 09/19/17 09: 37; Start 09/16/17 at 09:00; Stop 09/19/17 at 18:56; Status DC Divalproex Sodium (Depakote Sprinkles) 125 mg [id number] PO Last administered on 19:37; Start 09/17/17 at 21:00 Acetaminophen (Tylenol) 650 mg Q8HRS PO Last administered on 09/25/17 14:00; Start 09/18/17 at 22:00; Stop 09/25/17 at 21:59 Acetaminophen (Tylenol) 650 mg 1X ONCE PO Last administered on 09/18/17 15: 25; Start 09/18/17 at 15:15; Stop 09/18/17 at 15:20; Status DC Lidocaine (Lidoderm) 1 patch HS TD ; Start 09/18/17 at 21:00 Multi-Ingredient Ointment (Analgesic [place]) 1 abbey [id number] TP Last administered on 09/23/17 13:33; Start 09/19/17 at 09:00; Stop 09/24/17 at 08:59; Status DC Memantine (Namenda) 10 mg BID PO Last administered on 09/25/17 19:37; Start 09/19/17 at 21:00 Duloxetine HCl (Cymbalta) 60 mg DAILY PO Last administered on 09/25/17 08:33 ; Start 09/20/17 at 09:00 Donepezil HCl (Aricept) 5 mg DAILY PO Last administered on 09/25/17 08:33; Start 09/20/17 at 11:15; Stop 09/26/17 at 08:00 Donepezil HCl (Aricept) 10 mg DAILY PO ; Start 09/26/17 at 09:00 Active Scripts Active Reported Multivitamins (Multivitamin) 1 Each Tablet 1 Each PO DAILY Seroquel (Quetiapine Fumarate) 50 Mg Tablet 50 Mg PO QHS Seroquel (Quetiapine Fumarate) 25 Mg Tablet 25 Mg PO DAILY Protonix (Pantoprazole Sodium) 20 Mg Tablet.dr 20 Mg PO DAILY Namenda (Memantine Hcl) 10 Mg Tablet 10 Mg PO DAILY Lisinopril 20 Mg Tablet 20 Mg PO DAILY Klonopin (Clonazepam) 0.5 Mg Tablet 0.25 Mg PO DAILY Gabapentin 600 Mg Tablet 600 Mg PO QHS [place] 3 1,000 Mg Softgel ([place]-3 Fatty Acids/Fish Oil) 1 Each Capsule 1 Each PO TID Eliquis (Apixaban) 5 Mg Tablet 5 Mg PO BID Effexor Xr (Venlafaxine Hcl) 75 Mg Cap.er.24h 75 Mg PO DAILY Sinemet 25-100 Mg Tablet (Carbidopa/Levodopa) 1 Each Tablet 1 Tab PO 5XDAY Calcium 600 + Vit D 200 Tablet (Calcium Carbonate/Vitamin D3) 1 Each Tablet 1 Each PO TID I have reviewed the current psychotropics carefully including drug interactions. Risk benefit ratio favors no change other than as noted in my dictated progress note. 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
--- NOTE | 2017-09-26 04:47 | PN ---
DATE: 09/24/2017 PSYCHIATRIC PROGRESS NOTE SUBJECTIVE: This late entry 09/24/2017 covers elements not covered in my initial note of 09/24/2017. I met with the patient in the evening of 09/24/2017. Overall, per nursing report, the patient states he has had trouble making sentences. Impaired ambulation, in wheelchair, complains of fuzzy head at times, refused Depakote at one point. Later in the day, he was better, took his 2:00 p.m. Depakote, states he gets confused remembering names of hospital. REVIEW OF SYSTEMS: No CV, , pulmonary, eye system symptoms on review. He is in a wheelchair. MENTAL STATUS EXAM: Oriented to himself and situation. Speech has some latency, low in volume, coherent, abstraction fair, computation impaired, language function intact. Mood and affect still somewhat withdrawn. LABORATORY DATA: Reviewed. 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 Rest unchanged from initial note. PLAN: Continue psychotropics mentioned in my initial note, Cymbalta, Namenda, Seroquel, Depakote, and Aricept. Valproic acid level is 24 despite being subtherapeutic clinically adequate for now. MAN Felicita CONTRERAS MD DR: ROCIO/afia JOB#: [id number] / [id number]
[2017-09-26 05:53] VITALS: BP 130/86
[2017-09-26] MEDS: CARBIDOPA/LEVODOPA 25/100MG TABLET PO SCH ×5 (06:14→19:54)
[2017-09-26] MEDS: OMEGA-3 FATTY ACIDS/FISH OIL 1,000 MG CAPSULE. PO SCH ×3 (07:48→19:56)
[2017-09-26] MEDS: LISINOPRIL 20 MG TABLET PO SCH (07:48)
[2017-09-26] MEDS: DIVALPROEX 125 MG CAP.SPRINK PO SCH ×3 (07:48→19:54)
[2017-09-26] MEDS: APIXABAN 5 MG TABLET. PO SCH ×2 (07:49→19:54)
[2017-09-26] MEDS: QUEtiapine 25 MG TABLET. PO SCH ×2 (07:49→19:56)
[2017-09-26] MEDS: CALCIUM CARB/VIT D3 500/200 TABLET PO SCH ×3 (07:49→19:55)
[2017-09-26] MEDS: DULoxetine HCL 60 MG CAPSULE.DR PO SCH (07:49)
[2017-09-26] MEDS: PANTOPRAZOLE 40 MG TABLET. PO SCH (07:49)
[2017-09-26] MEDS: MULTIVITAMIN with MINERAL TABLET. PO SCH (07:49)
[2017-09-26] MEDS: MEMANTINE 10 MG TABLET. PO SCH ×2 (07:49→19:54)
[2017-09-26] MEDS: DONEPEZIL HCL 10 MG TABLET PO SCH (07:55)
[2017-09-26 08:01] LABS: BASO % 0 % (0-3); EOS # 0.1 x10^3/uL (0.0-0.7); EOS % 1 % (0-3); HEMATOCRIT 39.5 % (39.0-53.0); HEMOGLOBIN 13.5 g/dL (13.0-17.5); LYMPH % 19 % (24-48); MEAN CORPUSCULAR HEMOGLOBIN 32 pg (25-35); MEAN CORPUSCULAR HGB CONC 34 g/dL (31-37); MEAN CORPUSCULAR VOLUME 93 fL (79-100); MONO # 0.3 x10^3/uL (0.0-1.1); MONO % 6 % (0-9); NEUT # 3.8 x10^3uL (1.8-7.7); NEUT % 74 % (31-73); PLATELET COUNT 157 x10^3/uL (140-400); RED BLOOD COUNT 4.25 x10^6/uL (4.30-5.70); WHITE BLOOD COUNT 5.2 x10^3/uL (4.0-11.0)
[2017-09-26 08:13] LABS: MAGNESIUM 2.2 mg/dL (1.8-2.4)
[2017-09-26 08:18] LABS: VAL ACID 20 mcg/mL (50-100)
[2017-09-26 08:21] LABS: ALBUMIN 3.2 g/dL (3.4-5.0); ALBUMIN/GLOBULIN RATIO 0.9 (1.0-1.7); CALCIUM 9.4 mg/dL (8.5-10.1); CREATININE 1.2 mg/dL (0.7-1.3); TOTAL BILIRUBIN 0.7 mg/dL (0.2-1.0); TOTAL PROTEIN 6.8 g/dL (6.4-8.2)
[2017-09-26 15:37] VITALS: BP 145/94
[2017-09-26] MEDS: GABAPENTIN 300 MG CAPSULE. PO SCH (19:54)
[2017-09-26] MEDS: LIDOCAINE (700MG/PATCH) PATCH. TD SCH (19:56)
--- NOTE | 2017-09-26 21:25 | PDOC ---
Exam Note: Neto Note: Please also refer to the separate dictated note~for this date of service dictated separately.~Patient seen individually. Discussed the patient with Nursing staff reviewed the chart.~Reviewed interim history and current functioning. Reviewed vital signs,~Labs/ Radiology~and current medications noted below. Continue current treatment with the changes noted in the dictated addendum note Assessment: Vital Signs: Vital Signs Date Time Temp Pulse Resp B/P (MAP) Pulse Ox O2 Delivery O2 Flow Rate FiO2 09/26/17 15:37 97.9 93 17 145/94 (111) 95 09/21/17 05:51 Room Air I&O Intake and Output 09/26/17 07:00 Intake Total 1200 ml Balance 1200 ml Intake Oral 1200 ml # Bowel Movements 2 Labs: Laboratory Tests Test 09/26/17 07:36 White Blood Count 5.2 x10^3/uL (4.0-11.0) Red Blood Count 4.25 x10^6/uL (4.30-5.70) L Hemoglobin 13.5 g/dL (13.0-17.5) Hematocrit 39.5 % (39.0-53.0) Mean Corpuscular Volume 93 fL (79-100) Mean Corpuscular Hemoglobin 32 pg (25-35) Mean Corpuscular Hemoglobin Concent 34 g/dL (31-37) Red Cell Distribution Width 14.0 % (11.5-14.5) Platelet Count 157 x10^3/uL (140-400) Neutrophils (%) (Auto) 74 % (31-73) H Lymphocytes (%) (Auto) 19 % (24-48) L Monocytes (%) (Auto) 6 % (0-9) Eosinophils (%) (Auto) 1 % (0-3) Basophils (%) (Auto) 0 % (0-3) Neutrophils # (Auto) 3.8 x10^3uL (1.8-7.7) Lymphocytes # (Auto) 1.0 x10^3/uL (1.0-4.8) Monocytes # (Auto) 0.3 x10^3/uL (0.0-1.1) Eosinophils # (Auto) 0.1 x10^3/uL (0.0-0.7) Basophils # (Auto) 0.0 x10^3/uL (0.0-0.2) Sodium Level 144 mmol/L (136-145) Potassium Level 4.0 mmol/L (3.5-5.1) Chloride Level 104 mmol/L (98-107) Carbon Dioxide Level 33 mmol/L (21-32) H Anion Gap 7 (6-14) Blood Urea Nitrogen 18 mg/dL (8-26) Creatinine 1.2 mg/dL (0.7-1.3) Estimated GFR (Cockcroft-Gault) 60.0 BUN/Creatinine Ratio 15 (6-20) Glucose Level 111 mg/dL (70-99) H Calcium Level 9.4 mg/dL (8.5-10.1) Magnesium Level 2.2 mg/dL (1.8-2.4) Total Bilirubin 0.7 mg/dL (0.2-1.0) Aspartate Amino Transferase (AST) 18 U/L (15-37) Alanine Aminotransferase (ALT) 17 U/L (16-63) Alkaline Phosphatase 51 U/L (46-116) Total Protein 6.8 g/dL (6.4-8.2) Albumin 3.2 g/dL (3.4-5.0) L Albumin/Globulin Ratio 0.9 (1.0-1.7) L Valproic Acid Level 20 mcg/mL (50-100) L Valproic Acid Last Dose Date 09/25/17 Valproic Acid Last Dose Time 2100 Current Medications: Meds: Current Medications Acetaminophen (Tylenol) 650 mg PRN Q6HRS PRN PO PAIN / TEMP Last administered on 09/18/17 08:00; Start 09/15/17 at 15:45; Stop 09/18/17 at 15:20; Status DC Multi-Ingredient Ointment (Analgesic [place]) 1 abbey PRN QID PRN TP MUSCLE PAIN; Start 09/15/17 at 15:45 Al Hydroxide/Mg Hydroxide (Mylanta Plus Xs) 15 ml PRN AFTMEALHC PRN PO DYSPEPSIA; Start 09/15/17 at 15:45 Magnesium Hydroxide (Milk Of Magnesia) 2,400 mg PRN QHS PRN PO CONSTIPATION Last administered on 09/25/17 19:37; Start 09/15/17 at 15:45 Apixaban (Eliquis) 5 mg BID PO Last administered on 09/26/17 19:54; Start at 21:00 Carbidopa/Levodopa (Sinemet 25/100) 1 tab 5XDAY PO Last administered on 19:54; Start 09/15/17 at 18:00 Lisinopril (Prinivil) 20 mg DAILY PO Last administered on 09/26/17 07:48; Start 09/16/17 at 09:00 Pantoprazole Sodium (Protonix) 40 mg DAILYAC PO Last administered on 07:49; Start 09/16/17 at 07:30 Calcium/Vitamin D (Oscal D 500mg/ 200uts) 1 tab TID PO Last administered on 19:55; Start 09/15/17 at 21:00 Gabapentin (Neurontin) 600 mg QHS PO Last administered on 09/26/17 19:54; Start 09/15/17 at 21:00 Multivitamins/ Calcium (Thera-M Plus) 1 tab DAILY PO Last administered on 09/26 07:49; Start 09/16/17 at 09:00 Fish Oil (Fish Oil) 1,000 mg TID PO Last administered on 09/26/17 19:56; Start 09/15/17 at 21:00 Clonazepam (KlonoPIN) 0.25 mg DAILY PO Last administered on 09/22/17 08:26; Start 09/16/17 at 09:00; Stop 09/22/17 at 19:30; Status DC Memantine (Namenda) 10 mg DAILY PO Last administered on 09/19/17 09:38; Start 09/16/17 at 09:00; Stop 09/19/17 at 14:55; Status DC Quetiapine Fumarate (SEROquel) 25 mg DAILY PO Last administered on 09/26/17 07:49; Start 09/16/17 at 09:00 Quetiapine Fumarate (SEROquel) 50 mg QHS PO Last administered on 09/25/17 19: 37; Start 09/15/17 at 21:00; Stop 09/26/17 at 18:49; Status DC Venlafaxine HCl (Effexor Xr) 75 mg DAILY PO Last administered on 09/19/17 09: 37; Start 09/16/17 at 09:00; Stop 09/19/17 at 18:56; Status DC Divalproex Sodium (Depakote Sprinkles) 125 mg [id number] PO Last administered on 19:54; Start 09/17/17 at 21:00 Acetaminophen (Tylenol) 650 mg Q8HRS PO Last administered on 09/25/17 14:00; Start 09/18/17 at 22:00; Stop 09/25/17 at 21:59; Status DC Acetaminophen (Tylenol) 650 mg 1X ONCE PO Last administered on 09/18/17 15: 25; Start 09/18/17 at 15:15; Stop 09/18/17 at 15:20; Status DC Lidocaine (Lidoderm) 1 patch HS TD ; Start 09/18/17 at 21:00 Multi-Ingredient Ointment (Analgesic [place]) 1 abbey [id number] TP Last administered on 09/23/17 13:33; Start 09/19/17 at 09:00; Stop 09/24/17 at 08:59; Status DC Memantine (Namenda) 10 mg BID PO Last administered on 09/26/17 19:54; Start 09/19/17 at 21:00 Duloxetine HCl (Cymbalta) 60 mg DAILY PO Last administered on 09/26/17 07:49 ; Start 09/20/17 at 09:00 Donepezil HCl (Aricept) 5 mg DAILY PO Last administered on 09/25/17 08:33; Start 09/20/17 at 11:15; Stop 09/26/17 at 08:00; Status DC Donepezil HCl (Aricept) 10 mg DAILY PO Last administered on 09/26/17 07:55; Start 09/26/17 at 09:00 Quetiapine Fumarate (SEROquel) 62.5 mg QHS PO Last administered on 09/26/17 19:56; Start 09/26/17 at 21:00 Active Scripts Active Reported Multivitamins (Multivitamin) 1 Each Tablet 1 Each PO DAILY Seroquel (Quetiapine Fumarate) 50 Mg Tablet 50 Mg PO QHS Seroquel (Quetiapine Fumarate) 25 Mg Tablet 25 Mg PO DAILY Protonix (Pantoprazole Sodium) 20 Mg Tablet.dr 20 Mg PO DAILY Namenda (Memantine Hcl) 10 Mg Tablet 10 Mg PO DAILY Lisinopril 20 Mg Tablet 20 Mg PO DAILY Klonopin (Clonazepam) 0.5 Mg Tablet 0.25 Mg PO DAILY Gabapentin 600 Mg Tablet 600 Mg PO QHS [place] 3 1,000 Mg Softgel ([place]-3 Fatty Acids/Fish Oil) 1 Each Capsule 1 Each PO TID Eliquis (Apixaban) 5 Mg Tablet 5 Mg PO BID Effexor Xr (Venlafaxine Hcl) 75 Mg Cap.er.24h 75 Mg PO DAILY Sinemet 25-100 Mg Tablet (Carbidopa/Levodopa) 1 Each Tablet 1 Tab PO 5XDAY Calcium 600 + Vit D 200 Tablet (Calcium Carbonate/Vitamin D3) 1 Each Tablet 1 Each PO TID I have reviewed the current psychotropics carefully including drug interactions. Risk benefit ratio favors no change other than as noted in my dictated progress note. 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
--- NOTE | 2017-09-27 03:25 | PN ---
DATE: 09/25/2017 This late entry for 09/25/2017 covers elements not covered in my initial note of 09/25/2017. SUBJECTIVE: I met with the patient in the evening of 09/25/2017. Overall, the patient remains somewhat withdrawn, flat, appears depressed. He talked to his and was more appropriate with her reportedly per nursing report, compliant with his medications. REVIEW OF SYSTEMS: Ambulation impaired, in wheelchair. No CV, , pulmonary, eye system symptoms on review. Movements somewhat hypoactive, consistent with his Parkinson's. MENTAL STATUS EXAM: Oriented to himself and situation. Speech moderate latency, often responses monosyllabic. Eye contact somewhat poor, abstraction fair, computation impaired, language function intact, attention span short. Mood and affect withdrawn, depressed, but showing improvement. LABORATORY DATA: Reviewed. 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 Rest unchanged from initial note. PLAN: Continue psychotropics mentioned in my initial note. Valproic acid level subtherapeutic, but clinically adequate for now. MAN Felicita CONTRERAS MD DR: ROCIO/afia JOB#: [id number] / [id number]
[2017-09-27 05:45] VITALS: BP 157/93
[2017-09-27] MEDS: CARBIDOPA/LEVODOPA 25/100MG TABLET PO SCH ×5 (06:02→19:40)
[2017-09-27] MEDS: DULoxetine HCL 60 MG CAPSULE.DR PO SCH (08:44)
[2017-09-27] MEDS: APIXABAN 5 MG TABLET. PO SCH ×2 (08:44→19:40)
[2017-09-27] MEDS: QUEtiapine 25 MG TABLET. PO SCH ×2 (08:44→19:39)
[2017-09-27] MEDS: LISINOPRIL 20 MG TABLET PO SCH (08:44)
[2017-09-27] MEDS: OMEGA-3 FATTY ACIDS/FISH OIL 1,000 MG CAPSULE. PO SCH ×3 (08:45→19:39)
[2017-09-27] MEDS: CALCIUM CARB/VIT D3 500/200 TABLET PO SCH ×3 (08:45→19:40)
[2017-09-27] MEDS: MULTIVITAMIN with MINERAL TABLET. PO SCH (08:45)
[2017-09-27] MEDS: DONEPEZIL HCL 10 MG TABLET PO SCH (08:45)
[2017-09-27] MEDS: PANTOPRAZOLE 40 MG TABLET. PO SCH (08:45)
[2017-09-27] MEDS: DIVALPROEX 125 MG CAP.SPRINK PO SCH ×3 (08:45→19:40)
[2017-09-27] MEDS: MEMANTINE 10 MG TABLET. PO SCH ×2 (08:45→19:40)
[2017-09-27 15:59] VITALS: BP 118/78
[2017-09-27] MEDS: GABAPENTIN 300 MG CAPSULE. PO SCH (19:39)
[2017-09-27] MEDS: LIDOCAINE (700MG/PATCH) PATCH. TD SCH (19:40)
--- NOTE | 2017-09-27 20:04 | PDOC ---
Exam Note: Neto Note: Please also refer to the separate dictated note~for this date of service dictated separately.~Patient seen individually. Discussed the patient with Nursing staff reviewed the chart.~Reviewed interim history and current functioning. Reviewed vital signs,~Labs/ Radiology~and current medications noted below. Continue current treatment with the changes noted in the dictated addendum note Assessment: Vital Signs: Vital Signs Date Time Temp Pulse Resp B/P (MAP) Pulse Ox O2 Delivery O2 Flow Rate FiO2 09/27/17 15:59 97.5 83 18 118/78 (91) 96 Room Air I&O Intake and Output 09/27/17 07:00 Intake Total 1320 ml Balance 1320 ml Intake Oral 1320 ml # Voids 1 # Bowel Movements 2 Current Medications: Meds: Current Medications Acetaminophen (Tylenol) 650 mg PRN Q6HRS PRN PO PAIN / TEMP Last administered on 09/18/17 08:00; Start 09/15/17 at 15:45; Stop 09/18/17 at 15:20; Status DC Multi-Ingredient Ointment (Analgesic [place]) 1 abbey PRN QID PRN TP MUSCLE PAIN; Start 09/15/17 at 15:45 Al Hydroxide/Mg Hydroxide (Mylanta Plus Xs) 15 ml PRN AFTMEALHC PRN PO DYSPEPSIA; Start 09/15/17 at 15:45 Magnesium Hydroxide (Milk Of Magnesia) 2,400 mg PRN QHS PRN PO CONSTIPATION Last administered on 09/25/17 19:37; Start 09/15/17 at 15:45 Apixaban (Eliquis) 5 mg BID PO Last administered on 09/27/17 19:40; Start at 21:00 Carbidopa/Levodopa (Sinemet 25/100) 1 tab 5XDAY PO Last administered on 19:40; Start 09/15/17 at 18:00 Lisinopril (Prinivil) 20 mg DAILY PO Last administered on 09/27/17 08:44; Start 09/16/17 at 09:00 Pantoprazole Sodium (Protonix) 40 mg DAILYAC PO Last administered on 08:45; Start 09/16/17 at 07:30 Calcium/Vitamin D (Oscal D 500mg/ 200uts) 1 tab TID PO Last administered on 19:40; Start 09/15/17 at 21:00 Gabapentin (Neurontin) 600 mg QHS PO Last administered on 09/27/17 19:39; Start 09/15/17 at 21:00 Multivitamins/ Calcium (Thera-M Plus) 1 tab DAILY PO Last administered on 09/27 08:45; Start 09/16/17 at 09:00 Fish Oil (Fish Oil) 1,000 mg TID PO Last administered on 09/27/17 19:39; Start 09/15/17 at 21:00 Clonazepam (KlonoPIN) 0.25 mg DAILY PO Last administered on 09/22/17 08:26; Start 09/16/17 at 09:00; Stop 09/22/17 at 19:30; Status DC Memantine (Namenda) 10 mg DAILY PO Last administered on 09/19/17 09:38; Start 09/16/17 at 09:00; Stop 09/19/17 at 14:55; Status DC Quetiapine Fumarate (SEROquel) 25 mg DAILY PO Last administered on 09/27/17 08:44; Start 09/16/17 at 09:00 Quetiapine Fumarate (SEROquel) 50 mg QHS PO Last administered on 09/25/17 19: 37; Start 09/15/17 at 21:00; Stop 09/26/17 at 18:49; Status DC Venlafaxine HCl (Effexor Xr) 75 mg DAILY PO Last administered on 09/19/17 09: 37; Start 09/16/17 at 09:00; Stop 09/19/17 at 18:56; Status DC Divalproex Sodium (Depakote Sprinkles) 125 mg [id number] PO Last administered on 19:40; Start 09/17/17 at 21:00 Acetaminophen (Tylenol) 650 mg Q8HRS PO Last administered on 09/25/17 14:00; Start 09/18/17 at 22:00; Stop 09/25/17 at 21:59; Status DC Acetaminophen (Tylenol) 650 mg 1X ONCE PO Last administered on 09/18/17 15: 25; Start 09/18/17 at 15:15; Stop 09/18/17 at 15:20; Status DC Lidocaine (Lidoderm) 1 patch HS TD Last administered on 09/27/17 19:40; Start 09/18/17 at 21:00 Multi-Ingredient Ointment (Analgesic [place]) 1 [place]bey BID92 TP Last administered on 09/23/17 13:33; Start 09/19/17 at 09:00; Stop 09/24/17 at 08:59; Status DC Memantine (Namenda) 10 mg BID PO Last administered on 09/27/17 19:40; Start 09/19/17 at 21:00 Duloxetine HCl (Cymbalta) 60 mg DAILY PO Last administered on 09/27/17 08:44 ; Start 09/20/17 at 09:00 Donepezil HCl (Aricept) 5 mg DAILY PO Last administered on 09/25/17 08:33; Start 09/20/17 at 11:15; Stop 09/26/17 at 08:00; Status DC Donepezil HCl (Aricept) 10 mg DAILY PO Last administered on 09/27/17 08:45; Start 09/26/17 at 09:00 Quetiapine Fumarate (SEROquel) 62.5 mg QHS PO Last administered on 09/27/17 19:39; Start 09/26/17 at 21:00 Active Scripts Active Reported Multivitamins (Multivitamin) 1 Each Tablet 1 Each PO DAILY Seroquel (Quetiapine Fumarate) 50 Mg Tablet 50 Mg PO QHS Seroquel (Quetiapine Fumarate) 25 Mg Tablet 25 Mg PO DAILY Protonix (Pantoprazole Sodium) 20 Mg Tablet.dr 20 Mg PO DAILY Namenda (Memantine Hcl) 10 Mg Tablet 10 Mg PO DAILY Lisinopril 20 Mg Tablet 20 Mg PO DAILY Klonopin (Clonazepam) 0.5 Mg Tablet 0.25 Mg PO DAILY Gabapentin 600 Mg Tablet 600 Mg PO QHS [place] 3 1,000 Mg Softgel ([place]-3 Fatty Acids/Fish Oil) 1 Each Capsule 1 Each PO TID Eliquis (Apixaban) 5 Mg Tablet 5 Mg PO BID Effexor Xr (Venlafaxine Hcl) 75 Mg Cap.er.24h 75 Mg PO DAILY Sinemet 25-100 Mg Tablet (Carbidopa/Levodopa) 1 Each Tablet 1 Tab PO 5XDAY Calcium 600 + Vit D 200 Tablet (Calcium Carbonate/Vitamin D3) 1 Each Tablet 1 Each PO TID I have reviewed the current psychotropics carefully including drug interactions. Risk benefit ratio favors no change other than as noted in my dictated progress note. 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
[2017-09-28] MEDS: CARBIDOPA/LEVODOPA 25/100MG TABLET PO SCH ×5 (05:00→19:31)
[2017-09-28 05:43] VITALS: BP 117/70
[2017-09-28] MEDS: LISINOPRIL 20 MG TABLET PO SCH (07:46)
[2017-09-28] MEDS: MULTIVITAMIN with MINERAL TABLET. PO SCH (07:46)
[2017-09-28] MEDS: QUEtiapine 25 MG TABLET. PO SCH ×2 (07:46→19:31)
[2017-09-28] MEDS: DONEPEZIL HCL 10 MG TABLET PO SCH (07:46)
[2017-09-28] MEDS: OMEGA-3 FATTY ACIDS/FISH OIL 1,000 MG CAPSULE. PO SCH ×3 (07:46→19:31)
[2017-09-28] MEDS: DULoxetine HCL 60 MG CAPSULE.DR PO SCH (07:46)
[2017-09-28] MEDS: CALCIUM CARB/VIT D3 500/200 TABLET PO SCH ×3 (07:46→19:31)
[2017-09-28] MEDS: MEMANTINE 10 MG TABLET. PO SCH ×2 (07:46→19:31)
[2017-09-28] MEDS: DIVALPROEX 125 MG CAP.SPRINK PO SCH ×3 (07:47→19:30)
[2017-09-28] MEDS: APIXABAN 5 MG TABLET. PO SCH ×2 (07:47→19:31)
[2017-09-28] MEDS: PANTOPRAZOLE 40 MG TABLET. PO SCH (07:47)
[2017-09-28 16:14] VITALS: BP 133/84
[2017-09-28] MEDS: GABAPENTIN 300 MG CAPSULE. PO SCH (19:30)
[2017-09-28] MEDS: LIDOCAINE (700MG/PATCH) PATCH. TD SCH (19:31)
--- NOTE | 2017-09-28 22:16 | PDOC ---
Exam Note: Neto Note: Please also refer to the separate dictated note~for this date of service dictated separately.~Patient seen individually. Discussed the patient with Nursing staff reviewed the chart.~Reviewed interim history and current functioning. Reviewed vital signs,~Labs/ Radiology~and current medications noted below. Continue current treatment with the changes noted in the dictated addendum note Assessment: Vital Signs: Vital Signs Date Time Temp Pulse Resp B/P (MAP) Pulse Ox O2 Delivery O2 Flow Rate FiO2 09/28/17 16:14 98.3 87 17 133/84 (100) 96 09/27/17 15:59 Room Air I&O Intake and Output 09/28/17 07:00 Intake Total 1080 ml Balance 1080 ml Intake Oral 1080 ml # Bowel Movements 2 Current Medications: Meds: Current Medications Acetaminophen (Tylenol) 650 mg PRN Q6HRS PRN PO PAIN / TEMP Last administered on 09/18/17 08:00; Start 09/15/17 at 15:45; Stop 09/18/17 at 15:20; Status DC Multi-Ingredient Ointment (Analgesic [place]) 1 abbey PRN QID PRN TP MUSCLE PAIN; Start 09/15/17 at 15:45 Al Hydroxide/Mg Hydroxide (Mylanta Plus Xs) 15 ml PRN AFTMEALHC PRN PO DYSPEPSIA; Start 09/15/17 at 15:45 Magnesium Hydroxide (Milk Of Magnesia) 2,400 mg PRN QHS PRN PO CONSTIPATION Last administered on 09/25/17 19:37; Start 09/15/17 at 15:45 Apixaban (Eliquis) 5 mg BID PO Last administered on 09/28/17 19:31; Start at 21:00 Carbidopa/Levodopa (Sinemet 25/100) 1 tab 5XDAY PO Last administered on 19:31; Start 09/15/17 at 18:00 Lisinopril (Prinivil) 20 mg DAILY PO Last administered on 09/28/17 07:46; Start 09/16/17 at 09:00 Pantoprazole Sodium (Protonix) 40 mg DAILYAC PO Last administered on 07:47; Start 09/16/17 at 07:30 Calcium/Vitamin D (Oscal D 500mg/ 200uts) 1 tab TID PO Last administered on 19:31; Start 09/15/17 at 21:00 Gabapentin (Neurontin) 600 mg QHS PO Last administered on 09/28/17 19:30; Start 09/15/17 at 21:00 Multivitamins/ Calcium (Thera-M Plus) 1 tab DAILY PO Last administered on 09/28 07:46; Start 09/16/17 at 09:00 Fish Oil (Fish Oil) 1,000 mg TID PO Last administered on 09/28/17 19:31; Start 09/15/17 at 21:00 Clonazepam (KlonoPIN) 0.25 mg DAILY PO Last administered on 09/22/17 08:26; Start 09/16/17 at 09:00; Stop 09/22/17 at 19:30; Status DC Memantine (Namenda) 10 mg DAILY PO Last administered on 09/19/17 09:38; Start 09/16/17 at 09:00; Stop 09/19/17 at 14:55; Status DC Quetiapine Fumarate (SEROquel) 25 mg DAILY PO Last administered on 09/28/17 07:46; Start 09/16/17 at 09:00 Quetiapine Fumarate (SEROquel) 50 mg QHS PO Last administered on 09/25/17 19: 37; Start 09/15/17 at 21:00; Stop 09/26/17 at 18:49; Status DC Venlafaxine HCl (Effexor Xr) 75 mg DAILY PO Last administered on 09/19/17 09: 37; Start 09/16/17 at 09:00; Stop 09/19/17 at 18:56; Status DC Divalproex Sodium (Depakote Sprinkles) 125 mg [id number] PO Last administered on 19:30; Start 09/17/17 at 21:00 Acetaminophen (Tylenol) 650 mg Q8HRS PO Last administered on 09/25/17 14:00; Start 09/18/17 at 22:00; Stop 09/25/17 at 21:59; Status DC Acetaminophen (Tylenol) 650 mg 1X ONCE PO Last administered on 09/18/17 15: 25; Start 09/18/17 at 15:15; Stop 09/18/17 at 15:20; Status DC Lidocaine (Lidoderm) 1 patch HS TD Last administered on 09/27/17 19:40; Start 09/18/17 at 21:00 Multi-Ingredient Ointment (Analgesic [place]) 1 abbey [id number] TP Last administered on 09/23/17 13:33; Start 09/19/17 at 09:00; Stop 09/24/17 at 08:59; Status DC Memantine (Namenda) 10 mg BID PO Last administered on 09/28/17 19:31; Start 09/19/17 at 21:00 Duloxetine HCl (Cymbalta) 60 mg DAILY PO Last administered on 09/28/17 07:46 ; Start 09/20/17 at 09:00 Donepezil HCl (Aricept) 5 mg DAILY PO Last administered on 09/25/17 08:33; Start 09/20/17 at 11:15; Stop 09/26/17 at 08:00; Status DC Donepezil HCl (Aricept) 10 mg DAILY PO Last administered on 09/28/17 07:46; Start 09/26/17 at 09:00 Quetiapine Fumarate (SEROquel) 62.5 mg QHS PO Last administered on 09/28/17 19:31; Start 09/26/17 at 21:00 Active Scripts Active Reported Multivitamins (Multivitamin) 1 Each Tablet 1 Each PO DAILY Seroquel (Quetiapine Fumarate) 50 Mg Tablet 50 Mg PO QHS Seroquel (Quetiapine Fumarate) 25 Mg Tablet 25 Mg PO DAILY Protonix (Pantoprazole Sodium) 20 Mg Tablet.dr 20 Mg PO DAILY Namenda (Memantine Hcl) 10 Mg Tablet 10 Mg PO DAILY Lisinopril 20 Mg Tablet 20 Mg PO DAILY Klonopin (Clonazepam) 0.5 Mg Tablet 0.25 Mg PO DAILY Gabapentin 600 Mg Tablet 600 Mg PO QHS [place] 3 1,000 Mg Softgel ([place]-3 Fatty Acids/Fish Oil) 1 Each Capsule 1 Each PO TID Eliquis (Apixaban) 5 Mg Tablet 5 Mg PO BID Effexor Xr (Venlafaxine Hcl) 75 Mg Cap.er.24h 75 Mg PO DAILY Sinemet 25-100 Mg Tablet (Carbidopa/Levodopa) 1 Each Tablet 1 Tab PO 5XDAY Calcium 600 + Vit D 200 Tablet (Calcium Carbonate/Vitamin D3) 1 Each Tablet 1 Each PO TID I have reviewed the current psychotropics carefully including drug interactions. Risk benefit ratio favors no change other than as noted in my dictated progress note. 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
--- NOTE | 2017-09-29 00:34 | PN ---
DATE: 09/27/2017 This is a late entry, covers the elements not covered in my initial note, 09/27/2017. SUBJECTIVE: The patient was staffed at a treatment team meeting with the entire team morning of 09/27/2017. He slept 8 hours, paranoid regarding medications, withdrawn, and depressed. REVIEW OF SYSTEMS: Ambulation impaired, in wheelchair. No CV, , pulmonary, eye system symptoms on review. MENTAL STATUS EXAM: Oriented to himself and situation. Speech moderate latency, often responses monosyllabic. Abstraction fair, computation impaired, language function intact, attention span short. Mood and affect somewhat withdrawn. LABORATORY DATA: Reviewed. 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 PLAN: Continue psychotropics as mentioned in my initial note, may need to increase Cymbalta, but given his age and overall status, we will leave it for now. MAN Felicita CONTRERAS MD DR: ROCIO/afia JOB#: [id number] / [id number]
--- NOTE | 2017-09-29 00:35 | PN ---
DATE: 09/26/2017 This late entry, 09/26/2017, covers elements not covered in my initial note of 09/26/2017. SUBJECTIVE: I met with the patient the evening of 09/26/2017 and discussed with social service and nursing staff. The patient has been somewhat paranoid, convinced something is wrong with his medications. He has been given the wrong medications. Appears somewhat depressed, asking if he has been given narcotics. REVIEW OF SYSTEMS: Ambulation impaired, in wheelchair. Rest symptoms consistent with Parkinson's and depression. No CV, , pulmonary, eye system symptoms on review. MENTAL STATUS EXAM: Oriented to himself and situation. Speech moderate latency, often responses monosyllabic, low in volume. Abstraction fair, computation impaired, language function intact, attention span short. Mood and affect is quite withdrawn. LABORATORY DATA: Reviewed. IMPRESSION: Unchanged from initial note. PLAN: Increase the bedtime Seroquel to 62.5 mg at bedtime. Rest continue unchanged. 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 MAN Felicita CONTRERAS MD DR: ROCIO/afia JOB#: [id number] / [id number]
[2017-09-29 05:34] VITALS: BP_SYST 132; BP_SYST 152; BP_DIAS 78; BP_DIAS 90
[2017-09-29] MEDS: CARBIDOPA/LEVODOPA 25/100MG TABLET PO SCH ×5 (05:47→19:40)
[2017-09-29] MEDS: PANTOPRAZOLE 40 MG TABLET. PO SCH (07:24)
[2017-09-29] MEDS: DULoxetine HCL 60 MG CAPSULE.DR PO SCH (07:24)
[2017-09-29] MEDS: CALCIUM CARB/VIT D3 500/200 TABLET PO SCH ×3 (07:24→19:40)
[2017-09-29] MEDS: MULTIVITAMIN with MINERAL TABLET. PO SCH (07:24)
[2017-09-29] MEDS: APIXABAN 5 MG TABLET. PO SCH ×2 (07:24→19:40)
[2017-09-29] MEDS: MEMANTINE 10 MG TABLET. PO SCH ×2 (07:24→19:40)
[2017-09-29] MEDS: DIVALPROEX 125 MG CAP.SPRINK PO SCH ×3 (07:25→19:40)
[2017-09-29] MEDS: DONEPEZIL HCL 10 MG TABLET PO SCH (07:25)
[2017-09-29] MEDS: LISINOPRIL 20 MG TABLET PO SCH (07:25)
[2017-09-29] MEDS: QUEtiapine 25 MG TABLET. PO SCH ×2 (07:25→19:40)
[2017-09-29] MEDS: OMEGA-3 FATTY ACIDS/FISH OIL 1,000 MG CAPSULE. PO SCH ×3 (07:25→19:40)
[2017-09-29 15:56] VITALS: BP 147/90
[2017-09-29 16:04] VITALS: BP 147/90
[2017-09-29] MEDS: LIDOCAINE (700MG/PATCH) PATCH. TD SCH (19:40)
[2017-09-29] MEDS: GABAPENTIN 300 MG CAPSULE. PO SCH (19:40)
--- NOTE | 2017-09-29 21:21 | PDOC ---
Exam Note: Neto Note: Please also refer to the separate dictated note~for this date of service dictated separately.~Patient seen individually. Discussed the patient with Nursing staff reviewed the chart.~Reviewed interim history and current functioning. Reviewed vital signs,~Labs/ Radiology~and current medications noted below. Continue current treatment with the changes noted in the dictated addendum note Assessment: Vital Signs: Vital Signs Date Time Temp Pulse Resp B/P (MAP) Pulse Ox O2 Delivery O2 Flow Rate FiO2 09/29/17 16:04 98.0 95 20 147/90 (109) 98 09/29/17 15:56 Room Air I&O Intake and Output 09/29/17 07:00 Intake Total 1080 ml Balance 1080 ml Intake Oral 1080 ml # Bowel Movements 1 Current Medications: Meds: Current Medications Acetaminophen (Tylenol) 650 mg PRN Q6HRS PRN PO PAIN / TEMP Last administered on 09/18/17 08:00; Start 09/15/17 at 15:45; Stop 09/18/17 at 15:20; Status DC Multi-Ingredient Ointment (Analgesic [place]) 1 abbey PRN QID PRN TP MUSCLE PAIN; Start 09/15/17 at 15:45 Al Hydroxide/Mg Hydroxide (Mylanta Plus Xs) 15 ml PRN AFTMEALHC PRN PO DYSPEPSIA; Start 09/15/17 at 15:45 Magnesium Hydroxide (Milk Of Magnesia) 2,400 mg PRN QHS PRN PO CONSTIPATION Last administered on 09/25/17 19:37; Start 09/15/17 at 15:45 Apixaban (Eliquis) 5 mg BID PO Last administered on 09/29/17 19:40; Start at 21:00 Carbidopa/Levodopa (Sinemet 25/100) 1 tab 5XDAY PO Last administered on 19:40; Start 09/15/17 at 18:00 Lisinopril (Prinivil) 20 mg DAILY PO Last administered on 09/29/17 07:25; Start 09/16/17 at 09:00 Pantoprazole Sodium (Protonix) 40 mg DAILYAC PO Last administered on 07:24; Start 09/16/17 at 07:30 Calcium/Vitamin D (Oscal D 500mg/ 200uts) 1 tab TID PO Last administered on 19:40; Start 09/15/17 at 21:00 Gabapentin (Neurontin) 600 mg QHS PO Last administered on 09/29/17 19:40; Start 09/15/17 at 21:00 Multivitamins/ Calcium (Thera-M Plus) 1 tab DAILY PO Last administered on 09/29 07:24; Start 09/16/17 at 09:00 Fish Oil (Fish Oil) 1,000 mg TID PO Last administered on 09/29/17 19:40; Start 09/15/17 at 21:00 Clonazepam (KlonoPIN) 0.25 mg DAILY PO Last administered on 09/22/17 08:26; Start 09/16/17 at 09:00; Stop 09/22/17 at 19:30; Status DC Memantine (Namenda) 10 mg DAILY PO Last administered on 09/19/17 09:38; Start 09/16/17 at 09:00; Stop 09/19/17 at 14:55; Status DC Quetiapine Fumarate (SEROquel) 25 mg DAILY PO Last administered on 09/29/17 07:25; Start 09/16/17 at 09:00 Quetiapine Fumarate (SEROquel) 50 mg QHS PO Last administered on 09/25/17 19: 37; Start 09/15/17 at 21:00; Stop 09/26/17 at 18:49; Status DC Venlafaxine HCl (Effexor Xr) 75 mg DAILY PO Last administered on 09/19/17 09: 37; Start 09/16/17 at 09:00; Stop 09/19/17 at 18:56; Status DC Divalproex Sodium (Depakote Sprinkles) 125 mg [id number] PO Last administered on 19:40; Start 09/17/17 at 21:00 Acetaminophen (Tylenol) 650 mg Q8HRS PO Last administered on 09/25/17 14:00; Start 09/18/17 at 22:00; Stop 09/25/17 at 21:59; Status DC Acetaminophen (Tylenol) 650 mg 1X ONCE PO Last administered on 09/18/17 15: 25; Start 09/18/17 at 15:15; Stop 09/18/17 at 15:20; Status DC Lidocaine (Lidoderm) 1 patch HS TD Last administered on 09/27/17 19:40; Start 09/18/17 at 21:00 Multi-Ingredient Ointment (Analgesic [place]) 1 abbey [id number] TP Last administered on 09/23/17 13:33; Start 09/19/17 at 09:00; Stop 09/24/17 at 08:59; Status DC Memantine (Namenda) 10 mg BID PO Last administered on 09/29/17 19:40; Start 09/19/17 at 21:00 Duloxetine HCl (Cymbalta) 60 mg DAILY PO Last administered on 09/29/17 07:24 ; Start 09/20/17 at 09:00 Donepezil HCl (Aricept) 5 mg DAILY PO Last administered on 09/25/17 08:33; Start 09/20/17 at 11:15; Stop 09/26/17 at 08:00; Status DC Donepezil HCl (Aricept) 10 mg DAILY PO Last administered on 09/29/17 07:25; Start 09/26/17 at 09:00 Quetiapine Fumarate (SEROquel) 62.5 mg QHS PO Last administered on 09/28/17 19:31; Start 09/26/17 at 21:00; Stop 09/29/17 at 19:04; Status DC Quetiapine Fumarate (SEROquel) 75 mg QHS PO Last administered on 09/29/17 19: 40; Start 09/29/17 at 21:00 Active Scripts Active Reported Multivitamins (Multivitamin) 1 Each Tablet 1 Each PO DAILY Seroquel (Quetiapine Fumarate) 50 Mg Tablet 50 Mg PO QHS Seroquel (Quetiapine Fumarate) 25 Mg Tablet 25 Mg PO DAILY Protonix (Pantoprazole Sodium) 20 Mg Tablet.dr 20 Mg PO DAILY Namenda (Memantine Hcl) 10 Mg Tablet 10 Mg PO DAILY Lisinopril 20 Mg Tablet 20 Mg PO DAILY Klonopin (Clonazepam) 0.5 Mg Tablet 0.25 Mg PO DAILY Gabapentin 600 Mg Tablet 600 Mg PO QHS [place] 3 1,000 Mg Softgel ([place]-3 Fatty Acids/Fish Oil) 1 Each Capsule 1 Each PO TID Eliquis (Apixaban) 5 Mg Tablet 5 Mg PO BID Effexor Xr (Venlafaxine Hcl) 75 Mg Cap.er.24h 75 Mg PO DAILY Sinemet 25-100 Mg Tablet (Carbidopa/Levodopa) 1 Each Tablet 1 Tab PO 5XDAY Calcium 600 + Vit D 200 Tablet (Calcium Carbonate/Vitamin D3) 1 Each Tablet 1 Each PO TID I have reviewed the current psychotropics carefully including drug interactions. Risk benefit ratio favors no change other than as noted in my dictated progress note. 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
[2017-09-30] MEDS: CARBIDOPA/LEVODOPA 25/100MG TABLET PO SCH ×5 (06:14→19:30)
[2017-09-30 06:24] VITALS: BP 154/96
[2017-09-30] MEDS: MULTIVITAMIN with MINERAL TABLET. PO SCH (07:57)
[2017-09-30] MEDS: LISINOPRIL 20 MG TABLET PO SCH (07:57)
[2017-09-30] MEDS: DULoxetine HCL 60 MG CAPSULE.DR PO SCH (07:57)
[2017-09-30] MEDS: DONEPEZIL HCL 10 MG TABLET PO SCH (07:57)
[2017-09-30] MEDS: CALCIUM CARB/VIT D3 500/200 TABLET PO SCH ×3 (07:57→19:30)
[2017-09-30] MEDS: OMEGA-3 FATTY ACIDS/FISH OIL 1,000 MG CAPSULE. PO SCH ×3 (07:57→19:30)
[2017-09-30] MEDS: DIVALPROEX 125 MG CAP.SPRINK PO SCH ×3 (07:58→19:30)
[2017-09-30] MEDS: PANTOPRAZOLE 40 MG TABLET. PO SCH (07:58)
[2017-09-30] MEDS: QUEtiapine 25 MG TABLET. PO SCH ×2 (07:58→19:30)
[2017-09-30] MEDS: MEMANTINE 10 MG TABLET. PO SCH ×2 (07:58→19:31)
[2017-09-30] MEDS: APIXABAN 5 MG TABLET. PO SCH ×2 (07:58→19:31)
[2017-09-30 16:00] VITALS: BP 109/73
--- NOTE | 2017-09-30 19:16 | PN ---
DATE: 09/29/2017 PSYCHIATRIC PROGRESS NOTE This late entry 09/29/2017 covers elements not covered in my initial note of 09/29/2017. I met with the patient in the evening of 09/29/2017. The patient is still somewhat paranoid in the morning regarding his medications otherwise withdrawn, but better, less agitated. REVIEW OF SYSTEMS: Ambulation impaired, in wheelchair. No CV, , pulmonary, eye, ENT system symptoms on review. Complains of some back pain and itching on his back as well. MENTAL STATUS EXAM: Oriented to himself and situation. Speech moderate latency, often responses monosyllabic. Abstraction fair, computation impaired, language function intact. Mood and affect somewhat withdrawn. LABORATORY DATA: Reviewed. IMPRESSION: Major depressive disorder, recurrent. Rest unchanged from initial note. PLAN: Increase bedtime Seroquel from 62.5 mg to 75 mg, rest unchanged from initial note. MAN Felicita CONTRERAS MD DR: ROCIO/afia JOB#: [id number] / [id number]
[2017-09-30] MEDS: GABAPENTIN 300 MG CAPSULE. PO SCH (19:30)
--- NOTE | 2017-09-30 19:30 | PN ---
DATE: 09/30/2017 This late entry 09/28/2017 covers elements not covered in my initial note 09/28/2017. SUBJECTIVE: Met with the patient evening of 09/28/2017. The patient remains withdrawn in his wheelchair with the parkinsonian affect, depressed, not aggressive, still paranoid, believes nursing staff "doping" him. REVIEW OF SYSTEMS: Ambulation impaired, in wheelchair. No CV, , pulmonary, eye, ENT system symptoms on review. MENTAL STATUS EXAM: Oriented to himself and situation. Speech moderate latency, often responses monosyllabic. Abstraction fair, computation impaired, language function intact, attention span short. Mood and affect somewhat withdrawn. LABORATORY DATA: Reviewed. 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 Rest unchanged from initial note. PLAN: Continue current psychotropics including Seroquel, which was recently increased. We may have to adjust this further if psychosis persists. MAN Felicita CONTRERAS MD DR: ROCIO/afia JOB#: [id number] / [id number]
--- NOTE | 2017-09-30 20:15 | PDOC ---
Exam Note: Neto Note: Please also refer to the separate dictated note~for this date of service dictated separately.~Patient seen individually. Discussed the patient with Nursing staff reviewed the chart.~Reviewed interim history and current functioning. Reviewed vital signs,~Labs/ Radiology~and current medications noted below. Continue current treatment with the changes noted in the dictated addendum note Assessment: Vital Signs: Vital Signs Date Time Temp Pulse Resp B/P (MAP) Pulse Ox O2 Delivery O2 Flow Rate FiO2 09/30/17 16:00 99.0 89 16 109/73 (85) 96 09/29/17 15:56 Room Air I&O Intake and Output 09/30/17 07:00 Intake Total 1080 ml Balance 1080 ml Intake Oral 1080 ml Current Medications: Meds: Current Medications Acetaminophen (Tylenol) 650 mg PRN Q6HRS PRN PO PAIN / TEMP Last administered on 09/18/17 08:00; Start 09/15/17 at 15:45; Stop 09/18/17 at 15:20; Status DC Multi-Ingredient Ointment (Analgesic [place]) 1 abbey PRN QID PRN TP MUSCLE PAIN; Start 09/15/17 at 15:45 Al Hydroxide/Mg Hydroxide (Mylanta Plus Xs) 15 ml PRN AFTMEALHC PRN PO DYSPEPSIA; Start 09/15/17 at 15:45 Magnesium Hydroxide (Milk Of Magnesia) 2,400 mg PRN QHS PRN PO CONSTIPATION Last administered on 09/25/17 19:37; Start 09/15/17 at 15:45 Apixaban (Eliquis) 5 mg BID PO Last administered on 09/30/17 19:31; Start at 21:00 Carbidopa/Levodopa (Sinemet 25/100) 1 tab 5XDAY PO Last administered on 19:30; Start 09/15/17 at 18:00 Lisinopril (Prinivil) 20 mg DAILY PO Last administered on 09/30/17 07:57; Start 09/16/17 at 09:00 Pantoprazole Sodium (Protonix) 40 mg DAILYAC PO Last administered on 07:58; Start 09/16/17 at 07:30 Calcium/Vitamin D (Oscal D 500mg/ 200uts) 1 tab TID PO Last administered on 19:30; Start 09/15/17 at 21:00 Gabapentin (Neurontin) 600 mg QHS PO Last administered on 09/30/17 19:30; Start 09/15/17 at 21:00 Multivitamins/ Calcium (Thera-M Plus) 1 tab DAILY PO Last administered on 09/30 07:57; Start 09/16/17 at 09:00 Fish Oil (Fish Oil) 1,000 mg TID PO Last administered on 09/30/17 19:30; Start 09/15/17 at 21:00 Clonazepam (KlonoPIN) 0.25 mg DAILY PO Last administered on 09/22/17 08:26; Start 09/16/17 at 09:00; Stop 09/22/17 at 19:30; Status DC Memantine (Namenda) 10 mg DAILY PO Last administered on 09/19/17 09:38; Start 09/16/17 at 09:00; Stop 09/19/17 at 14:55; Status DC Quetiapine Fumarate (SEROquel) 25 mg DAILY PO Last administered on 09/30/17 07:58; Start 09/16/17 at 09:00 Quetiapine Fumarate (SEROquel) 50 mg QHS PO Last administered on 09/25/17 19: 37; Start 09/15/17 at 21:00; Stop 09/26/17 at 18:49; Status DC Venlafaxine HCl (Effexor Xr) 75 mg DAILY PO Last administered on 09/19/17 09: 37; Start 09/16/17 at 09:00; Stop 09/19/17 at 18:56; Status DC Divalproex Sodium (Depakote Sprinkles) 125 mg [id number] PO Last administered on 19:30; Start 09/17/17 at 21:00 Acetaminophen (Tylenol) 650 mg Q8HRS PO Last administered on 09/25/17 14:00; Start 09/18/17 at 22:00; Stop 09/25/17 at 21:59; Status DC Acetaminophen (Tylenol) 650 mg 1X ONCE PO Last administered on 09/18/17 15: 25; Start 09/18/17 at 15:15; Stop 09/18/17 at 15:20; Status DC Lidocaine (Lidoderm) 1 patch HS TD Last administered on 09/27/17 19:40; Start 09/18/17 at 21:00; Stop 09/30/17 at 10:32; Status DC Multi-Ingredient Ointment (Analgesic [place]) 1 abbey [id number] TP Last administered on 09/23/17 13:33; Start 09/19/17 at 09:00; Stop 09/24/17 at 08:59; Status DC Memantine (Namenda) 10 mg BID PO Last administered on 09/30/17 19:31; Start 09/19/17 at 21:00 Duloxetine HCl (Cymbalta) 60 mg DAILY PO Last administered on 09/30/17 07:57 ; Start 09/20/17 at 09:00 Donepezil HCl (Aricept) 5 mg DAILY PO Last administered on 09/25/17 08:33; Start 09/20/17 at 11:15; Stop 09/26/17 at 08:00; Status DC Donepezil HCl (Aricept) 10 mg DAILY PO Last administered on 09/30/17 07:57; Start 09/26/17 at 09:00 Quetiapine Fumarate (SEROquel) 62.5 mg QHS PO Last administered on 09/28/17 19:31; Start 09/26/17 at 21:00; Stop 09/29/17 at 19:04; Status DC Quetiapine Fumarate (SEROquel) 75 mg QHS PO Last administered on 09/30/17 19: 30; Start 09/29/17 at 21:00 Active Scripts Active Reported Multivitamins (Multivitamin) 1 Each Tablet 1 Each PO DAILY Seroquel (Quetiapine Fumarate) 50 Mg Tablet 50 Mg PO QHS Seroquel (Quetiapine Fumarate) 25 Mg Tablet 25 Mg PO DAILY Protonix (Pantoprazole Sodium) 20 Mg Tablet.dr 20 Mg PO DAILY Namenda (Memantine Hcl) 10 Mg Tablet 10 Mg PO DAILY Lisinopril 20 Mg Tablet 20 Mg PO DAILY Klonopin (Clonazepam) 0.5 Mg Tablet 0.25 Mg PO DAILY Gabapentin 600 Mg Tablet 600 Mg PO QHS [place] 3 1,000 Mg Softgel ([place]-3 Fatty Acids/Fish Oil) 1 Each Capsule 1 Each PO TID Eliquis (Apixaban) 5 Mg Tablet 5 Mg PO BID Effexor Xr (Venlafaxine Hcl) 75 Mg Cap.er.24h 75 Mg PO DAILY Sinemet 25-100 Mg Tablet (Carbidopa/Levodopa) 1 Each Tablet 1 Tab PO 5XDAY Calcium 600 + Vit D 200 Tablet (Calcium Carbonate/Vitamin D3) 1 Each Tablet 1 Each PO TID I have reviewed the current psychotropics carefully including drug interactions. Risk benefit ratio favors no change other than as noted in my dictated progress note. 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
[2017-10-01 05:52] VITALS: BP 145/78
[2017-10-01] MEDS: CARBIDOPA/LEVODOPA 25/100MG TABLET PO SCH ×5 (05:52→19:26)
[2017-10-01] MEDS: CALCIUM CARB/VIT D3 500/200 TABLET PO SCH ×3 (08:38→19:24)
[2017-10-01] MEDS: MULTIVITAMIN with MINERAL TABLET. PO SCH (08:38)
[2017-10-01] MEDS: OMEGA-3 FATTY ACIDS/FISH OIL 1,000 MG CAPSULE. PO SCH ×3 (08:38→19:24)
[2017-10-01] MEDS: PANTOPRAZOLE 40 MG TABLET. PO SCH (08:38)
[2017-10-01] MEDS: DIVALPROEX 125 MG CAP.SPRINK PO SCH ×3 (08:38→19:24)
[2017-10-01] MEDS: MEMANTINE 10 MG TABLET. PO SCH ×2 (08:39→19:24)
[2017-10-01] MEDS: APIXABAN 5 MG TABLET. PO SCH ×2 (08:39→19:24)
[2017-10-01] MEDS: DULoxetine HCL 60 MG CAPSULE.DR PO SCH (08:39)
[2017-10-01] MEDS: QUEtiapine 25 MG TABLET. PO SCH ×2 (08:39→19:25)
[2017-10-01] MEDS: DONEPEZIL HCL 10 MG TABLET PO SCH (08:39)
[2017-10-01] MEDS: LISINOPRIL 20 MG TABLET PO SCH (08:39)
[2017-10-01 16:09] VITALS: BP 106/68
[2017-10-01] MEDS: GABAPENTIN 300 MG CAPSULE. PO SCH (19:24)
--- NOTE | 2017-10-01 20:13 | PDOC ---
Exam Note: Neto Note: Please also refer to the separate dictated note~for this date of service dictated separately.~Patient seen individually. Discussed the patient with Nursing staff reviewed the chart.~Reviewed interim history and current functioning. Reviewed vital signs,~Labs/ Radiology~and current medications noted below. Continue current treatment with the changes noted in the dictated addendum note Assessment: Vital Signs: Vital Signs Date Time Temp Pulse Resp B/P (MAP) Pulse Ox O2 Delivery O2 Flow Rate FiO2 10/01/17 16:09 98.2 92 18 106/68 (81) 98 Room Air I&O Intake and Output 10/01/17 07:00 Intake Total 1560 ml Balance 1560 ml Intake Oral 1560 ml # Bowel Movements 1 Current Medications: Meds: Current Medications Acetaminophen (Tylenol) 650 mg PRN Q6HRS PRN PO PAIN / TEMP Last administered on 09/18/17 08:00; Start 09/15/17 at 15:45; Stop 09/18/17 at 15:20; Status DC Multi-Ingredient Ointment (Analgesic [place]) 1 abbey PRN QID PRN TP MUSCLE PAIN; Start 09/15/17 at 15:45 Al Hydroxide/Mg Hydroxide (Mylanta Plus Xs) 15 ml PRN AFTMEALHC PRN PO DYSPEPSIA; Start 09/15/17 at 15:45 Magnesium Hydroxide (Milk Of Magnesia) 2,400 mg PRN QHS PRN PO CONSTIPATION Last administered on 09/25/17 19:37; Start 09/15/17 at 15:45 Apixaban (Eliquis) 5 mg BID PO Last administered on 10/01/17 19:24; Start at 21:00 Carbidopa/Levodopa (Sinemet 25/100) 1 tab 5XDAY PO Last administered on 19:26; Start 09/15/17 at 18:00 Lisinopril (Prinivil) 20 mg DAILY PO Last administered on 10/01/17 08:39; Start 09/16/17 at 09:00 Pantoprazole Sodium (Protonix) 40 mg DAILYAC PO Last administered on 08:38; Start 09/16/17 at 07:30 Calcium/Vitamin D (Oscal D 500mg/ 200uts) 1 tab TID PO Last administered on 19:24; Start 09/15/17 at 21:00 Gabapentin (Neurontin) 600 mg QHS PO Last administered on 10/01/17 19:24; Start 09/15/17 at 21:00 Multivitamins/ Calcium (Thera-M Plus) 1 tab DAILY PO Last administered on 10/01 08:38; Start 09/16/17 at 09:00 Fish Oil (Fish Oil) 1,000 mg TID PO Last administered on 10/01/17 19:24; Start 09/15/17 at 21:00 Clonazepam (KlonoPIN) 0.25 mg DAILY PO Last administered on 09/22/17 08:26; Start 09/16/17 at 09:00; Stop 09/22/17 at 19:30; Status DC Memantine (Namenda) 10 mg DAILY PO Last administered on 09/19/17 09:38; Start 09/16/17 at 09:00; Stop 09/19/17 at 14:55; Status DC Quetiapine Fumarate (SEROquel) 25 mg DAILY PO Last administered on 10/01/17 08:39; Start 09/16/17 at 09:00 Quetiapine Fumarate (SEROquel) 50 mg QHS PO Last administered on 09/25/17 19: 37; Start 09/15/17 at 21:00; Stop 09/26/17 at 18:49; Status DC Venlafaxine HCl (Effexor Xr) 75 mg DAILY PO Last administered on 09/19/17 09: 37; Start 09/16/17 at 09:00; Stop 09/19/17 at 18:56; Status DC Divalproex Sodium (Depakote Sprinkles) 125 mg [id number] PO Last administered on 19:24; Start 09/17/17 at 21:00 Acetaminophen (Tylenol) 650 mg Q8HRS PO Last administered on 09/25/17 14:00; Start 09/18/17 at 22:00; Stop 09/25/17 at 21:59; Status DC Acetaminophen (Tylenol) 650 mg 1X ONCE PO Last administered on 09/18/17 15: 25; Start 09/18/17 at 15:15; Stop 09/18/17 at 15:20; Status DC Lidocaine (Lidoderm) 1 patch HS TD Last administered on 09/27/17 19:40; Start 09/18/17 at 21:00; Stop 09/30/17 at 10:32; Status DC Multi-Ingredient Ointment (Analgesic [place]) 1 abbey BID92 TP Last administered on 09/23/17 13:33; Start 09/19/17 at 09:00; Stop 09/24/17 at 08:59; Status DC Memantine (Namenda) 10 mg BID PO Last administered on 10/01/17 19:24; Start 09/19/17 at 21:00 Duloxetine HCl (Cymbalta) 60 mg DAILY PO Last administered on 10/01/17 08:39 ; Start 09/20/17 at 09:00 Donepezil HCl (Aricept) 5 mg DAILY PO Last administered on 09/25/17 08:33; Start 09/20/17 at 11:15; Stop 09/26/17 at 08:00; Status DC Donepezil HCl (Aricept) 10 mg DAILY PO Last administered on 10/01/17 08:39; Start 09/26/17 at 09:00 Quetiapine Fumarate (SEROquel) 62.5 mg QHS PO Last administered on 09/28/17 19:31; Start 09/26/17 at 21:00; Stop 09/29/17 at 19:04; Status DC Quetiapine Fumarate (SEROquel) 75 mg QHS PO Last administered on 10/01/17 19: 25; Start 09/29/17 at 21:00 Multi-Ingred Cream/Lotion/Oil/ Oint (Hydrocerin) 1 abbey DAILY TP ; Start at 09:00 Active Scripts Active Reported Multivitamins (Multivitamin) 1 Each Tablet 1 Each PO DAILY Seroquel (Quetiapine Fumarate) 50 Mg Tablet 50 Mg PO QHS Seroquel (Quetiapine Fumarate) 25 Mg Tablet 25 Mg PO DAILY Protonix (Pantoprazole Sodium) 20 Mg Tablet.dr 20 Mg PO DAILY Namenda (Memantine Hcl) 10 Mg Tablet 10 Mg PO DAILY Lisinopril 20 Mg Tablet 20 Mg PO DAILY Klonopin (Clonazepam) 0.5 Mg Tablet 0.25 Mg PO DAILY Gabapentin 600 Mg Tablet 600 Mg PO QHS [place] 3 1,000 Mg Softgel ([place]-3 Fatty Acids/Fish Oil) 1 Each Capsule 1 Each PO TID Eliquis (Apixaban) 5 Mg Tablet 5 Mg PO BID Effexor Xr (Venlafaxine Hcl) 75 Mg Cap.er.24h 75 Mg PO DAILY Sinemet 25-100 Mg Tablet (Carbidopa/Levodopa) 1 Each Tablet 1 Tab PO 5XDAY Calcium 600 + Vit D 200 Tablet (Calcium Carbonate/Vitamin D3) 1 Each Tablet 1 Each PO TID I have reviewed the current psychotropics carefully including drug interactions. Risk benefit ratio favors no change other than as noted in my dictated progress note. 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
--- NOTE | 2017-10-01 21:53 | PN ---
DATE: 09/30/2017 This is a late entry for 09/30/2017 and covers the elements not covered in my initial note of 09/30/2017. SUBJECTIVE: I met with the patient in the evening of 09/30/2017. The patient slept 7 hours previous evening. The patient remains anxious, perseverates and obsesses about different things. Lidocaine patch was discontinued per Dr. Nascimento, remains somewhat paranoid. REVIEW OF SYSTEMS: Ambulation impaired, in wheelchair. No CV, , pulmonary, eye, ENT system symptoms on review. He has a parkinsonian facial expression and movements consistent with this. MENTAL STATUS EXAM: Speech moderate latency, often responses monosyllabic. Abstraction fair, computation impaired, language function intact. No suicidal or homicidal ideation. Mood and affect remain somewhat depressed, but better than before. LABORATORY DATA: Reviewed. 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 PLAN: Increase bedtime Seroquel from 62.5 mg to 75 mg. Continue rest psychotropics unchanged per initial note. MAN Felicita CONTRERAS MD DR: ROCIO/afia JOB#: [id number] / [id number]
[2017-10-02 05:19] VITALS: BP 156/98
[2017-10-02] MEDS: CARBIDOPA/LEVODOPA 25/100MG TABLET PO SCH ×5 (06:12→19:53)
[2017-10-02] MEDS: DULoxetine HCL 60 MG CAPSULE.DR PO SCH (08:04)
[2017-10-02] MEDS: PANTOPRAZOLE 40 MG TABLET. PO SCH (08:04)
[2017-10-02] MEDS: OMEGA-3 FATTY ACIDS/FISH OIL 1,000 MG CAPSULE. PO SCH ×3 (08:04→19:53)
[2017-10-02] MEDS: CALCIUM CARB/VIT D3 500/200 TABLET PO SCH ×3 (08:04→19:54)
[2017-10-02] MEDS: MEMANTINE 10 MG TABLET. PO SCH ×2 (08:04→19:53)
[2017-10-02] MEDS: DIVALPROEX 125 MG CAP.SPRINK PO SCH ×3 (08:04→19:53)
[2017-10-02] MEDS: MULTIVITAMIN with MINERAL TABLET. PO SCH (08:05)
[2017-10-02] MEDS: DONEPEZIL HCL 10 MG TABLET PO SCH (08:05)
[2017-10-02] MEDS: LISINOPRIL 20 MG TABLET PO SCH (08:05)
[2017-10-02] MEDS: QUEtiapine 25 MG TABLET. PO SCH ×2 (08:05→19:54)
[2017-10-02] MEDS: APIXABAN 5 MG TABLET. PO SCH ×2 (08:05→19:53)
[2017-10-02] MEDS: MINERAL OIL/PETROLATUM TOPICAL CREAM 113GM JAR. TP SCH (08:06)
[2017-10-02 12:10] LABS: FREE PSA/PSA RATIO 2.9 % (.); PSA FREE 0.02 ng/mL; PSA TOTAL 0.7 ng/mL (0.0-4.0)
[2017-10-02 15:53] VITALS: BP 146/89
[2017-10-02 19:24] LABS: BILIRUBIN,URINE NEG (NEG); CLARITY,URINE HAZY; COLOR,URINE YELLOW; GLUCOSE,URINE NEG (NEG); NITRITE,URINE NEG (NEG); UROBILINOGEN,URINE 0.2 mg/dL (0.2 mg/dL)
[2017-10-02 19:25] LABS: AMORPHOUS SEDIMENT,UR PRESENT /HPF; BACTERIA,URINE 0 /HPF (0-FEW); HYALINE CASTS, URINE FEW /HPF; RBC,URINE OCC /HPF (0-2); SQUAMOUS EPITHELIAL CELL,UR FEW /LPF; WBC,URINE OCC /HPF (0-4)
[2017-10-02] MEDS: GABAPENTIN 300 MG CAPSULE. PO SCH (19:53)
--- NOTE | 2017-10-02 20:10 | PDOC ---
Exam Note: Neto Note: Please also refer to the separate dictated note~for this date of service dictated separately.~Patient seen individually. Discussed the patient with Nursing staff reviewed the chart.~Reviewed interim history and current functioning. Reviewed vital signs,~Labs/ Radiology~and current medications noted below. Continue current treatment with the changes noted in the dictated addendum note Assessment: Vital Signs: Vital Signs Date Time Temp Pulse Resp B/P (MAP) Pulse Ox O2 Delivery O2 Flow Rate FiO2 10/02/17 15:53 98.6 86 17 146/89 (108) 99 10/01/17 16:09 Room Air I&O Intake and Output 10/02/17 07:00 Intake Total 1560 ml Balance 1560 ml Intake Oral 1560 ml # Voids 2 # Bowel Movements 2 Labs: Laboratory Tests Test 10/02/17 17:54 Urine Collection Type Unknown Urine Color Yellow Urine Clarity Hazy Urine pH 6.5 Urine Specific [place] 1.020 Urine Protein Neg (NEG-TRACE) Urine Glucose (UA) Neg mg/dL (NEG) Urine Ketones (Stick) Trace mg/dL (NEG) Urine Blood Neg (NEG) Urine Nitrite Neg (NEG) Urine Bilirubin Neg (NEG) Urine Urobilinogen Dipstick 0.2 mg/dL (0.2 mg/dL) Urine Leukocyte Esterase Neg (NEG) Urine RBC Occ /HPF (0-2) Urine WBC Occ /HPF (0-4) Urine Squamous Epithelial Cells Few /LPF Urine Amorphous Sediment Present /HPF Urine Bacteria 0 /HPF (0-FEW) Urine Hyaline Casts Few /HPF Urine Mucus Mod /LPF Current Medications: Meds: Current Medications Acetaminophen (Tylenol) 650 mg PRN Q6HRS PRN PO PAIN / TEMP Last administered on 09/18/17 08:00; Start 09/15/17 at 15:45; Stop 09/18/17 at 15:20; Status DC Multi-Ingredient Ointment (Analgesic [place]) 1 abbey PRN QID PRN TP MUSCLE PAIN; Start 09/15/17 at 15:45 Al Hydroxide/Mg Hydroxide (Mylanta Plus Xs) 15 ml PRN AFTMEALHC PRN PO DYSPEPSIA; Start 09/15/17 at 15:45 Magnesium Hydroxide (Milk Of Magnesia) 2,400 mg PRN QHS PRN PO CONSTIPATION Last administered on 09/25/17 19:37; Start 09/15/17 at 15:45 Apixaban (Eliquis) 5 mg BID PO Last administered on 10/02/17 19:53; Start at 21:00 Carbidopa/Levodopa (Sinemet 25/100) 1 tab 5XDAY PO Last administered on 19:53; Start 09/15/17 at 18:00 Lisinopril (Prinivil) 20 mg DAILY PO Last administered on 10/02/17 08:05; Start 09/16/17 at 09:00 Pantoprazole Sodium (Protonix) 40 mg DAILYAC PO Last administered on 08:04; Start 09/16/17 at 07:30 Calcium/Vitamin D (Oscal D 500mg/ 200uts) 1 tab TID PO Last administered on 19:54; Start 09/15/17 at 21:00 Gabapentin (Neurontin) 600 mg QHS PO Last administered on 10/02/17 19:53; Start 09/15/17 at 21:00 Multivitamins/ Calcium (Thera-M Plus) 1 tab DAILY PO Last administered on 10/02 08:05; Start 09/16/17 at 09:00 Fish Oil (Fish Oil) 1,000 mg TID PO Last administered on 10/02/17 19:53; Start 09/15/17 at 21:00 Clonazepam (KlonoPIN) 0.25 mg DAILY PO Last administered on 09/22/17 08:26; Start 09/16/17 at 09:00; Stop 09/22/17 at 19:30; Status DC Memantine (Namenda) 10 mg DAILY PO Last administered on 09/19/17 09:38; Start 09/16/17 at 09:00; Stop 09/19/17 at 14:55; Status DC Quetiapine Fumarate (SEROquel) 25 mg DAILY PO Last administered on 10/02/17 08:05; Start 09/16/17 at 09:00 Quetiapine Fumarate (SEROquel) 50 mg QHS PO Last administered on 09/25/17 19: 37; Start 09/15/17 at 21:00; Stop 09/26/17 at 18:49; Status DC Venlafaxine HCl (Effexor Xr) 75 mg DAILY PO Last administered on 09/19/17 09: 37; Start 09/16/17 at 09:00; Stop 09/19/17 at 18:56; Status DC Divalproex Sodium (Depakote Sprinkles) 125 mg [id number] PO Last administered on 19:53; Start 09/17/17 at 21:00 Acetaminophen (Tylenol) 650 mg Q8HRS PO Last administered on 09/25/17 14:00; Start 09/18/17 at 22:00; Stop 09/25/17 at 21:59; Status DC Acetaminophen (Tylenol) 650 mg 1X ONCE PO Last administered on 09/18/17 15: 25; Start 09/18/17 at 15:15; Stop 09/18/17 at 15:20; Status DC Lidocaine (Lidoderm) 1 patch HS TD Last administered on 09/27/17 19:40; Start 09/18/17 at 21:00; Stop 09/30/17 at 10:32; Status DC Multi-Ingredient Ointment (Analgesic [place]) 1 abbey BID92 TP Last administered on 09/23/17 13:33; Start 09/19/17 at 09:00; Stop 09/24/17 at 08:59; Status DC Memantine (Namenda) 10 mg BID PO Last administered on 10/02/17 19:53; Start 09/19/17 at 21:00 Duloxetine HCl (Cymbalta) 60 mg DAILY PO Last administered on 10/02/17 08:04 ; Start 09/20/17 at 09:00 Donepezil HCl (Aricept) 5 mg DAILY PO Last administered on 09/25/17 08:33; Start 09/20/17 at 11:15; Stop 09/26/17 at 08:00; Status DC Donepezil HCl (Aricept) 10 mg DAILY PO Last administered on 10/02/17 08:05; Start 09/26/17 at 09:00 Quetiapine Fumarate (SEROquel) 62.5 mg QHS PO Last administered on 09/28/17 19:31; Start 09/26/17 at 21:00; Stop 09/29/17 at 19:04; Status DC Quetiapine Fumarate (SEROquel) 75 mg QHS PO Last administered on 10/02/17 19: 54; Start 09/29/17 at 21:00 Multi-Ingred Cream/Lotion/Oil/ Oint (Hydrocerin) 1 abbey DAILY TP Last administered on 10/02/17 08:06; Start 10/02/17 at 09:00 Active Scripts Active Reported Multivitamins (Multivitamin) 1 Each Tablet 1 Each PO DAILY Seroquel (Quetiapine Fumarate) 50 Mg Tablet 50 Mg PO QHS Seroquel (Quetiapine Fumarate) 25 Mg Tablet 25 Mg PO DAILY Protonix (Pantoprazole Sodium) 20 Mg Tablet.dr 20 Mg PO DAILY Namenda (Memantine Hcl) 10 Mg Tablet 10 Mg PO DAILY Lisinopril 20 Mg Tablet 20 Mg PO DAILY Klonopin (Clonazepam) 0.5 Mg Tablet 0.25 Mg PO DAILY Gabapentin 600 Mg Tablet 600 Mg PO QHS [place] 3 1,000 Mg Softgel ([place]-3 Fatty Acids/Fish Oil) 1 Each Capsule 1 Each PO TID Eliquis (Apixaban) 5 Mg Tablet 5 Mg PO BID Effexor Xr (Venlafaxine Hcl) 75 Mg Cap.er.24h 75 Mg PO DAILY Sinemet 25-100 Mg Tablet (Carbidopa/Levodopa) 1 Each Tablet 1 Tab PO 5XDAY Calcium 600 + Vit D 200 Tablet (Calcium Carbonate/Vitamin D3) 1 Each Tablet 1 Each PO TID I have reviewed the current psychotropics carefully including drug interactions. Risk benefit ratio favors no change other than as noted in my dictated progress note. 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
[2017-10-02] MEDS ORDERED: DIVA125C PO (22:55)
[2017-10-02] MEDS ORDERED: DONE10TA7 PO (22:56)
[2017-10-02] MEDS ORDERED: DULO60CA6 PO (22:57)
[2017-10-02] MEDS ORDERED: MAG30ORA2 PO (22:59)
[2017-10-02] MEDS ORDERED: MAGN2400 PO (23:00)
[2017-10-02] MEDS ORDERED: METH29OI TP (23:02)
[2017-10-02] MEDS ORDERED: MINE120C TP (23:05)
[2017-10-03 05:09] VITALS: BP 147/91
[2017-10-03] MEDS: CARBIDOPA/LEVODOPA 25/100MG TABLET PO SCH ×2 (05:21→10:00)
[2017-10-03 07:05] LABS: BASO % 0 % (0-3); EOS # 0.1 x10^3/uL (0.0-0.7); EOS % 2 % (0-3); HEMATOCRIT 38.9 % (39.0-53.0); HEMOGLOBIN 13.5 g/dL (13.0-17.5); LYMPH # 1.2 x10^3/uL (1.0-4.8); LYMPH % 21 % (24-48); MEAN CORPUSCULAR HEMOGLOBIN 32 pg (25-35); MEAN CORPUSCULAR HGB CONC 35 g/dL (31-37); MEAN CORPUSCULAR VOLUME 93 fL (79-100); MONO # 0.3 x10^3/uL (0.0-1.1); MONO % 5 % (0-9); NEUT % 72 % (31-73); PLATELET COUNT 173 x10^3/uL (140-400); RED CELL DISTRIBUTION WIDTH 13.8 % (11.5-14.5); WHITE BLOOD COUNT 5.5 x10^3/uL (4.0-11.0)
[2017-10-03 07:25] LABS: ALBUMIN/GLOBULIN RATIO 0.8 (1.0-1.7); CALCIUM 9.3 mg/dL (8.5-10.1); CREATININE 1.2 mg/dL (0.7-1.3); MAGNESIUM 2.1 mg/dL (1.8-2.4); TOTAL BILIRUBIN 0.6 mg/dL (0.2-1.0); TOTAL PROTEIN 6.8 g/dL (6.4-8.2)
[2017-10-03] MEDS: OMEGA-3 FATTY ACIDS/FISH OIL 1,000 MG CAPSULE. PO SCH (08:05)
[2017-10-03] MEDS: DONEPEZIL HCL 10 MG TABLET PO SCH (08:05)
[2017-10-03 08:06] VITALS: BP 147/91
[2017-10-03] MEDS: DIVALPROEX 125 MG CAP.SPRINK PO SCH (08:06)
[2017-10-03] MEDS: QUEtiapine 25 MG TABLET. PO SCH (08:06)
[2017-10-03] MEDS: MULTIVITAMIN with MINERAL TABLET. PO SCH (08:06)
[2017-10-03] MEDS: APIXABAN 5 MG TABLET. PO SCH (08:06)
[2017-10-03] MEDS: MEMANTINE 10 MG TABLET. PO SCH (08:06)
[2017-10-03] MEDS: DULoxetine HCL 60 MG CAPSULE.DR PO SCH (08:06)
[2017-10-03] MEDS: PANTOPRAZOLE 40 MG TABLET. PO SCH (08:06)
[2017-10-03] MEDS: LISINOPRIL 20 MG TABLET PO SCH (08:06)
[2017-10-03] MEDS: CALCIUM CARB/VIT D3 500/200 TABLET PO SCH (08:06)
[2017-10-03] MEDS: MINERAL OIL/PETROLATUM TOPICAL CREAM 113GM JAR. TP SCH (08:07)
--- NOTE | 2017-10-03 12:10 | PN ---
DATE: 10/01/2017 PSYCHIATRIC PROGRESS NOTE This is a late entry 10/01/2017, covers elements not covered in my initial note 10/01/2017. SUBJECTIVE: I met with the patient the evening of 10/01/2017. The patient remains somewhat paranoid that his pills are narcotics, causing him sedation. called and talked to him evening of 10/01/2017. Slept 7-1/4 hours previous evening. REVIEW OF SYSTEMS: Ambulation impaired, in wheelchair. No CV, , pulmonary, eye, ENT system symptoms on review. Parkinson symptoms are evident. MENTAL STATUS EXAM: Oriented to himself and situation. Speech moderate latency, often responses monosyllabic. Abstraction fair, computation impaired, language function intact. Mood and affect showing improvement, still withdrawn. 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 Rest unchanged. PLAN: Continue current psychotropics. Given his Parkinson's, I prefer not to increase Seroquel any further just yet, but we will continue to reassess this. MAN Felicita CONTRERAS MD DR: ROCIO/afia JOB#: [id number] / [id number]
--- NOTE | 2017-10-04 08:58 | PN ---
DATE: 10/02/2017 This is a late entry for 10/02/2017 and covers elements not covered in my initial note of 10/02/2017. I met with the patient evening of 10/02/2017. The patient tries to get out of the wheelchair by himself but is a fall risk. I have the nursing staff to toilet him q.2h. to avoid this. Previous evening, he was paranoid regarding his medications, especially the a.m. medications and then more compliant as the day progressed. REVIEW OF SYSTEMS: Ambulation impaired, in wheelchair. No CV, , pulmonary, eye system symptoms on review. MENTAL STATUS EXAM: Oriented to himself and situation. Speech has moderate latency, often responses monosyllabic. Poor eye contact. Abstraction fair, computation impaired, language function intact, attention span short. Mood and affect remain somewhat withdrawn, but less irritable. Not aggressive. LABORATORY DATA: Reviewed. IMPRESSION: Major depressive disorder, recurrent, in partial remission; major neurocognitive disorder, early secondary to Parkinson's with depression, delusion. Rest unchanged from initial note. PLAN: Continue psychotropics as mentioned in my initial note. Adjust as indicated. MAN Felicita CONTRERAS MD DR: ROCIO/afia JOB#: [id number] / [id number]
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
== END 2017-10-03 13:28 | disposition home or self-care (01) | DRG 884 ==
LOC: EEVIPCON → GEROPSY 15:27
PROVIDERS: ADMIT Psychiatry & Neurology Psychiatry; ATTEND Psychiatry & Neurology Psychiatry
DX: F01.51 Vascular dementia, unspecified severity, with behavioral disturbance (principal); G20 Parkinson's disease; G30.9 Alzheimer's disease, unspecified; F02.81 Dementia in other diseases classified elsewhere, unspecified severity, with behavioral disturbance; F31.64 Bipolar disorder, current episode mixed, severe, with psychotic features; F41.9 Anxiety disorder, unspecified; F63.9 Impulse disorder, unspecified; F63.81 Intermittent explosive disorder; I10 Essential (primary) hypertension; K21.9 Gastro-esophageal reflux disease without esophagitis; Z66 Do not resuscitate; Z79.899 Other long term (current) drug therapy; Z85.46 Personal history of malignant neoplasm of prostate; Z86.711 Personal history of pulmonary embolism; Z86.718 Personal history of other venous thrombosis and embolism; Z91.19 Patient's noncompliance with other medical treatment and regimen; Z91.410 Personal history of adult physical and sexual abuse; Z79.01 Long term (current) use of anticoagulants; Z88.8 Allergy status to other drugs, medicaments and biological substances
CPT/HCPCS: 36415; 70450; 71010; 73070; 80053; 80061; 80164; 81001; 82306; 82607; 83036; 83540; 83550; 83605; 83735; 84153; 84154; 84436; 84443; 84480; 85025; 86592; 86593; 93005; 97110; 97116; 97530; 97535